=== PATIENT | male | born 1940 | race Caucasian/White ===

== ENCOUNTER 2024-11-09 06:08 | Inpatient (IN) | payer MEDICARE, SELFPAY ==
[2024-11-09] VITALS (45 sets, daily range): BP systolic 80–110; BP diastolic 33–61; PULSE 82–101; RESP 19–40; TEMP 36.9–39.6; O2SAT 93–99; BMI 32.8; BMI 36.0; BMI 33.9
--- NOTE | ~2024-11-09 | US_ITS ---
EXAMINATION: US ABDOMEN LIMITED CLINICAL INFORMATION: Ascites.. COMPARISON: Correlated to CT dated November 09, 2024. TECHNIQUE: Limited ultrasound of all 4 quadrants of the abdomen using grayscale technique with a curvilinear transducer. FINDINGS: There is a moderate to large amount of free fluid in the peritoneal cavity. Limited exam. US/US abdomen limited IMPRESSION: Ascites, moderate to large volume. Electronically signed by: Omar Singh MD 11/14/2024 10:13 AM EDT
--- NOTE | ~2024-11-09 | CT_ITS ---
EXAMINATION: CT CHEST WITHOUT CONTRAST CLINICAL INFORMATION: Dyspnea, edema versus pneumonia. COMPARISON: No prior CT. Chest x-ray dated earlier same day. TECHNIQUE: Multidetector volumetric CT imaging of the chest was done. Axial MIP volume rendering provided. Sagittal and coronal reformatted images were obtained. This CT examination was performed using dose optimization techniques as appropriate, variously including the following: *Automated exposure control *Adjustment of mA and/or kV according to patient size (this includes techniques or standardized protocols for targeted exams where dose is matched to indication/reason for exam; i.e. extremities or head) *Use of iterative reconstruction technique FINDINGS: There is mild to moderate respiratory motion artifact, limiting sensitivity of the study. LUNGS: There are dense consolidations in the bilateral lower lobe distributions with air bronchograms. There are patchy consolidative opacities in the posterior right upper lobe, similar etiology. There are centrilobular groundglass nodular opacities throughout the lingula and right middle lobe, also likely infectious representing bronchopneumonia. There appear to be trace pleural effusions. There is mild fluid thickening of the major fissures bilaterally. There is no pneumothorax. There is no suspicious pulmonary nodule within confines of motion and lower lung disease. MEDIASTINUM: Moderate cardiomegaly with biatrial enlargement. Calcification of the mitral valve annulus, aortic annulus, and aortic valve leaflets. This may indicate bicuspid valve and/or aortic stenosis. Aneurysmal dilatation of the ascending aorta measuring up to 5.4 cm. There is a ductus diverticulum. There is heavy atheromatous calcification. Main pulmonary artery is prominent, suggesting increased pulmonary pressures. There are likely reactive lymph nodes within the mediastinum measuring up to 12 mm. The thyroid gland is normal. The central airways are patent. Mildly patulous esophagus. CORONARY ARTERY CALCIFICATION: Moderate to heavy three-vessel coronary calcification. AXILLA: No lymphadenopathy. UPPER ABDOMEN: There is moderate ascites present. There are liver cysts present measuring up to 1.6 cm in the right hepatic lobe. There is likely hepatomegaly. The spleen is only partially imaged. OSSEOUS STRUCTURES: No suspicious lytic or blastic bone lesion. There are spinal degenerative changes and scoliosis. There are no acute fractures. CT/CT chest wo IV con IMPRESSION: 1. Somewhat motion degraded exam. 2. Multifocal pneumonitis, with consolidative opacities in both lower lobes, and patchy consolidative opacities in the posterior right upper lobe, with lesser bronchopneumonic involvement of the lingula and right middle lobe. 3. There appear to be trace pleural effusions. 4. There is moderate cardiomegaly, with notable biatrial enlargement. Calcification of the aortic valve leaflets, which may indicate bicuspid valve and/or aortic stenosis. There is no pericardial effusion. 5. Moderate aneurysmal dilatation of the ascending aorta at 5.4 cm diameter. Heavy calcific atherosclerosis 6. Prominent main pulmonary artery, suggesting increased pulmonary pressures. 7. There is moderate volume abdominal ascites present, etiology unclear. 8. There are reactive appearing lymph nodes in the mediastinum. 9. Additional ancillary findings as discussed in the body of the report. Electronically signed by: Sandeep Mclean MD 11/09/2024 11:09 AM EDT
--- NOTE | ~2024-11-09 | XR_ITS ---
EXAMINATION: XR CHEST CLINICAL INFORMATION: sob COMPARISON: None available. TECHNIQUE: Frontal view of the chest was obtained. FINDINGS: Patchy opacities extending from the right perihilar region to the periphery of the right hemithorax. Low lung volume. Cardiomediastinal silhouette size is enlarged. Calcified plaque thoracic aortic arch. No pneumothorax. Multilevel spondylosis. Degenerative changes in the shoulders. Osteopenia versus osteoporosis. XR/XR chest 1V IMPRESSION: Pulmonary edema versus multifocal pneumonia. Cardiomegaly versus pericardial effusion. Electronically signed by: Omar Singh MD 11/09/2024 07:42 AM EDT
--- NOTE | ~2024-11-09 | XR_ITS ---
CLINICAL HISTORY: tachypnea 1 view chest x-ray Comparison: CT/SR - CT ABDOMEN PELVIS WO IV CON - 11/09/24 10:[address]/AZ/SR - CT CHEST WO IV CON - 11/09/24 10:23 EDT CR/SR - XR CHEST 1V - 11/09/24 06:39 EDT Findings: Lung volumes are normal. Enlarged cardiac and mediastinal silhouette is unchanged. Unchanged retrocardiac opacities. Incrementally worsened right middle lobe and right lower lobe airspace opacities. No pleural effusion or pneumothorax. Vascular calcifications in the aorta. Visualized osseous structures are normal. Severe bilateral glenohumeral joint space narrowing. IMPRESSION: 1. Unchanged cardiomegaly 2. Worsening bibasilar airspace opacities. This document has been electronically signed by: Wilberto Randle III, MD PHD on 11/12/2024 02:12:52
--- NOTE | ~2024-11-09 | CT_ITS ---
EXAMINATION: CT ABDOMEN PELVIS WITHOUT IV CONTRAST HISTORY: air noted on chest CT COMPARISON: Correlation is made with a chest CT performed earlier in the day. TECHNIQUE: CT scan of the abdomen and pelvis was performed without contrast using standard departmental protocol. Coronal and sagittal reformatted images were generated and reviewed. Oral contrast material was not administered at the request of the referring physician. This CT exam was performed with one or more of the following dose reduction techniques: automated exposure control, adjustment of the mA and/or kV according to patient size, use of iterative reconstruction technique. DLP: 871 mGy-cm FINDINGS: LOWER CHEST: There is airspace consolidation with air bronchograms at both lung bases consistent with pneumonia. There is a trace left pleural effusion. CARDIOVASCULATURE: The heart is markedly enlarged. There is no pericardial effusion. LIVER: The liver demonstrates a mildly nodular contour, suggestive of cirrhosis. Multiple hypodense masses are seen within the liver which may represent cysts. There is a 4.6 cm lesion at the dome of the right lobe and additional 3.6 and 3.5 cm lesions more inferiorly in the right lobe. There is a 1.5 cm lesion in the left lobe. GALLBLADDER / BILE DUCTS: The gallbladder is unremarkable. There is no intra or extrahepatic biliary ductal dilatation. SPLEEN: The spleen is enlarged. PANCREAS: The pancreas has an unremarkable unenhanced appearance. ADRENAL GLANDS: Unremarkable. KIDNEYS/RETROPERITONEUM: No renal calculi are identified. There is no hydronephrosis. There is an 8.1 cm rim calcified cysts in the interpolar region of the right kidney and a 3.7 cm probable cyst at the lower pole. A tiny subcentimeter hyperdense focus is seen in the interpolar region. The left kidney demonstrates an 8.7 cm probable septated cyst at the lower pole. LYMPH NODES: There is a 2.6 cm right inguinal lymph node. VASCULATURE: The abdominal aorta demonstrates atherosclerotic calcification, but is normal in caliber. MESENTERY/PERITONEUM: There is a moderate amount of ascites in the abdomen and pelvis. There is no free intraperitoneal gas. STOMACH: The stomach is unremarkable. SMALL BOWEL: The small bowel is normal in caliber. COLON: The colon is unremarkable. APPENDIX: Normal. URINARY BLADDER/PELVIC ORGANS: The urinary bladder is partially obscured by streak artifact from a left total hip arthroplasty. The prostate is normal in size. BONES / SOFT TISSUES: There is degenerative disc disease of the spine. CT/CT abdomen pelvis wo IV con IMPRESSION: 1. Probable hepatic cirrhosis. Splenomegaly. Moderate amount of ascites. 2. Multiple liver lesions which may represent cysts. Confirmation with ultrasound is recommended. 3. Bilateral lower lobe consolidation, consistent with pneumonia. 4. Probable bilateral renal cysts as described. Confirmation with ultrasound is recommended. Electronically signed by: Marty Davis MD 11/09/2024 11:10 AM EDT
--- NOTE | 2024-11-09 06:19 | ECG_ITS ---
Test Reason : sob Blood Pressure : */* mmHG Vent. Rate : 98 BPM Atrial Rate : * BPM P-R Int : * ms QRS Dur : 94 ms QT Int : 354 ms P-R-T Axes : * 109 -25 degrees QTcB Int : 451 ms Atrial fibrillation with premature ventricular or aberrantly conducted complexes Rightward axis Low voltage QRS Cannot rule out Anteroseptal infarct , age undetermined Abnormal ECG No previous ECGs available Referred By: Jackie Okeefe Electronically Signed By: SALOME ADLER
--- NOTE | 2024-11-09 06:23 | ED_ITS ---
HPI - General Adult General Chief complaint: Dyspnea Stated complaint: snf SOB DNR DNI daniel x1 wk Time Seen by Provider: 11/09/24 06:19 Source: EMS Mode of arrival: EMS Limitations: other History of Present Illness ED Provider: Dr. Jackie Okeefe HPI narrative: Patient comes to the emergency room via EMS. Patient is coming from [facility]. According to EMS, the staff reported that the patient has been there for about a week, and he has been rhonchorous for the whole week. Today, they noted that patient's oxygen saturation was supposedly in the 60s. However, when EMS arrived, patient's oxygen saturation was in the low 90s. Initially, EMS reports that it was hard for them to obtain an oxygen saturation reading and they put him on 15 L prophylactically. Then they brought him to the emergency room. Patient is awake, alert, does not answer to questions. According to patient's copy of [facility]OLST form, he is DNR DNI. Patient does use CPAP at home. Patient denies any chest pain. Related Data Allergies Allergy/AdvReac Type Severity Reaction Status Date / Time No Known Allergies Allergy Verified 11/09/24 06:33 Review of Systems 2 Review of Systems: Yes Unobtainable due to mental condition, Unobtainable due to mental status and Other (Poor historian) [facility] Past Medical History Medical History Adequate anticoagulation on anticoagulant therapy Gout Rosacea Hypertension Hypothyroidism Atrial fibrillation Alcoholic cirrhosis Lymphoid leukemia CHF (congestive heart failure) Social History Social History Unable to assess alcohol history related to: Unable to respond Smoked in Last 30 Days: No Use of substances other than those prescribed or required for medical reasons: Unable to respond Advance Directives: Yes Advance Directives Information Provided: No Advance Directives on File: No Do you have a plan to hurt others: No Plan Physical Exam ED Vital Signs: Vital Signs - 24 hr 11/09/24 06:18 11/09/24 06:27 11/09/24 06:29 Temperature 99.5 F 103.3 F H 103.3 F H Pulse Rate 99 Respiratory Rate 19 Blood Pressure 100/54 L Pulse Oximetry 95 Oxygen Delivery Method Oxymask Oxygen Flow Rate 10 Fraction of Inspired Oxygen 11/09/24 06:32 11/09/24 07:15 11/09/24 07:53 Temperature Pulse Rate 95 94 Respiratory Rate 40 H 28 H Blood Pressure 90/48 L 84/46 L Pulse Oximetry 93 Oxygen Delivery Method CPAP Oxygen Flow Rate Fraction of Inspired Oxygen 30 11/09/24 08:02 11/09/24 08:11 Temperature Pulse Rate 88 97 Respiratory Rate 34 H Blood Pressure 84/44 L 84/44 L Pulse Oximetry 94 Oxygen Delivery Method BiPAP Oxygen Flow Rate Fraction of Inspired Oxygen 30 BMI result Body Mass Index 36.0 Course Course Course Narrative: Patient known to have CHF. We do not have any previous records to determine patient's ejection fraction. Patient known to use CPAP at home. On physical exam, the Patient has crackles bilaterally. Patient arrived on a OxyMask, patient has lower extremity edema, bilateral crackles, we will start the patient on CPAP Also, it was noted at this time, 06:30 that the pain in his rectal temperature is elevated at 103.3 F, patient is empirically being treated with IV antibiotics and IV fluids (200 mL given at 999 mL/hr), at this time, sepsis is not suspected. However, since patient has history of CPAP and patient's seems to be gradually, he would benefit from being on CPAP for couple of hours. Medications Administered Generic Name Dose Route Start Last Admin Trade Name Freq PRN Reason Stop Dose Admin Azithromycin 500 mg/ Sodium 250 mls @ 125 mls/hr 11/09/24 06:27 11/09/24 07:01 Chloride IV 11/09/24 08:26 125 mls/hr ONCE ONE Administration Norepinephrine Bitartrate 8 mg in 250 mls @ 0 mls/hr 11/09/24 08:00 11/09/24 08:11 Levophed IVCONT 0.05 mcg/kg/min .Q0M CAROLINE 9.72 mls/hr Protocol Administration Per Protocol Discontinued Medications Generic Name Dose Route Start Last Admin Trade Name Freq PRN Reason Stop Dose Admin Ceftriaxone Sodium 1 gm 11/09/24 06:27 11/09/24 07:01 Ceftriaxone Sodium 1 Gm Vial IVPUSH 11/09/24 06:28 1 gm ONCE ONE Administration Sodium Chloride 200 mls @ 999 mls/hr 11/09/24 06:27 11/09/24 07:10 Ns IVCONT 11/09/24 06:39 Infused .Q13M ONE Infusion Acetaminophen 1,000 mg in 100 mls @ 400 mls/hr 11/09/24 07:03 11/09/24 07:29 Ofirmev IV 11/09/24 07:17 Infused ONCE ONE Infusion Medical Decision Making Medical Decision Making [facility] Narrative: My interpretation of EKG: Atrial fibrillation, heart rate controlled, heart rate 98, occasional PVCs, otherwise no ST segment depression or elevation or T- wave inversions, QTC 451 At this time, 06:15 My interpretation of chest x-ray: Cardiomegaly present, Vascular congestion, questionable right lower lobe infiltrate. Radiology report is pending So far the only labs that we have bag is patient is hematology, patient's white blood cell count 6.2. All other labs are still pending. As mentioned above, patient already received IV fluids and IV antibiotics with a bolus exclusion form, patient does have history of CHF At this time, 07:28, Lactic acid is 1.5, patient's chemistry shows a creatinine of 1.46. A BNP of 1203. We do not know if this is new or the patient's baseline. At this time, 07:57, I was informed by the patient's nurse that the patient's blood pressure is in the low 80s. We will go ahead and start pressors. Also, at this time chest x-ray shows pulmonary edema versus multifocal pneumonia? Possible pericardial effusion? We will order a CT scan. At this time, 07:59, sepsis is suspected. Patient has already been covered with IV antibiotics, minimal fluids due to concurrent CHF exacerbation CT scan pending. I discussed the patient with Dr. Byrd CT scan pending. Patient is currently on Levophed, prostate blood pressure improves, we will take him for a CAT scan. At this time, 8:23, Dr. Thompson will take over patient's care Differential Diagnosis Differential Diagnoses: The differential diagnosis associated with the presentation includes (CHF, pneumonia, COVID, RSV, influenza) Admission/Observation Consideration of admission/observation: Escalation of care including admission/observation considered Consult Healthcare Provider Management of the patient was discussed with: Job Coach/Job Developer Lab Data [facility] Lab Attestation statement: I reviewed the patient's lab results. 11/09/24 06:43 11/09/24 06:43 Labs: Lab Results 11/09/24 11/09/24 Range/Units 06:43 06:52 WBC 6.2 (4.8-10.8) X10*3/uL RBC 3.13 L (4.60-5.80) X10*6/uL Hgb 9.4 L (14.0-18.0) g/dl Hct 28.3 L (42.0-52.0) % MCV 90.4 (80.0-98.0) fL MCH 30.0 (27.0-33.0) pg MCHC 33.2 (31.0-36.0) g/dl RDW 17.8 H (11.0-16.0) % Plt Count 118 L (160-400) X10*3/uL MPV 9.4 (9.4-12.4) fL Immature Gran % (Auto) Cancelled Neut % (Auto) Cancelled Lymph % (Auto) Cancelled [place] % (Auto) Cancelled Eos % (Auto) Cancelled Baso % (Auto) Cancelled Lymph # (Auto) Cancelled [place] # (Auto) Cancelled Eos # (Auto) Cancelled Baso # (Auto) Cancelled Abs Immat Gran (auto) Cancelled Absolute Neuts (auto) Cancelled Absolute Nucleated RBC 0.000 (0.0-0.012) X10*3/uL Nucleated RBC % (auto) 0.0 (0.0-0.2) /100WBC Neutrophils % (Manual) 36 L (45-73) % Band Neutrophils % 13 H (3-5) % Lymphocytes % (Manual) 42 H (20-40) % Atypical Lymphs % (Man) 2 (0-6) % Monocytes % (Manual) 5 (2-11) % Eosinophils % (Manual) 1 (0-4) % Metamyelocytes % 1 % Abs Neuts (Manual) 3.0 (2.0-8.3) X10*3/uL Lymphocytes # (Manual) 2.6 (1.2-4.9) X10*3/uL Atyp Lymphs # (Manual) 0.1 x10*3/uL Monocytes # (Manual) 0.3 (0.1-1.2) X10*3/uL Eosinophils # (Manual) 0.1 (0.0-0.4) X10*3/uL Metamyelocytes # 0.1 X10*3/uL Dohle Bodies PRESENT Platelet Estimate DECREASED (NORMAL) Plt Morphology Comment NORMAL RBC Morphology NOTED Polychromasia 1+ (0-2) /OIF Schistocytes 1+ (0-2) /OIF VBG pH 7.42 (7.32-7.43) VBG pCO2 47 mmHg VBG pO2 68 mmHg VBG HCO3 31 H (22-26) mmol/L VBG O2 Saturation 92.0 % VBG Base Excess 5.9 mmol/L Sodium 135 (135-145) mmol/L Potassium 4.2 (3.3-5.1) mmol/L Chloride 97 (96-108) mmol/L Carbon Dioxide 27 (22-29) mmol/L Anion Gap 15 (12-20) BUN 50 H (9-16) mg/dL Creatinine 1.46 H (0.5-1.4) mg/dL Estim Creat Clear Calc 45.4 Estimated GFR 46 Random Glucose 102 (60-115) mg/dL Lactic Acid 1.5 (0.5-2.0) mmol/L Calcium 8.7 (8.4-10.2) mg/dL Magnesium 2.4 (1.6-2.6) mg/dL Total Bilirubin 5.6 H (0.0-1.0) mg/dL Direct Bilirubin 1.4 H (0.0-0.5) mg/dL AST 22 (5-37) U/L ALT < 6 (0-40) U/L Alkaline Phosphatase 111 (39-117) U/L Troponin I High Sens 180.8 H* (<3.5-35.0) ng/L B-Natriuretic Peptide 1203 H (<100) pg/mL Total Protein 6.1 L (6.5-8.0) g/dL Albumin 3.4 L (3.5-5.0) g/dL Influenza Type A (PCR) NEGATIVE (Negative) Influenza Type B (PCR) NEGATIVE (Negative) RSV RNA Qual (PCR) NEGATIVE (Negative) SARS-CoV-2 RNA (RT-PCR) NEGATIVE (Negative) Independent Interpretation I performed an independent interpretation of an: EKG and Plain X-Ray Radiology Impression Discussion of test interpretation with radiology: I have reviewed the radiologist's reading. Radiologist Impression: Patchy opacities extending from the right perihilar region to the periphery of the right hemithorax. Low lung volume. Cardiomediastinal silhouette size is enlarged. Calcified plaque thoracic aortic arch. No pneumothorax. Multilevel spondylosis. Degenerative changes in the shoulders. Osteopenia versus osteoporosis. XR/XR chest 1V IMPRESSION: Pulmonary edema versus multifocal pneumonia. Cardiomegaly versus pericardial effusion Independent Historian Clinical information obtained from an independent historian. History obtained from or confirmed by: Spouse Critical Care Time Critical Care Time Critical Care Time: Yes Total Critical Care Time: 90 Attestation: I have personally provided critical care time. Time includes review of lab data, radiology results, discussion with consultants, and monitoring for potential decompensation. Intervention performed as documented. Discharge Plan Discharge Clinical Impression: CHF (congestive heart failure), Pneumonia, Sepsis Patient Disposition: Admitted As Inpatient Print Language: Guinean Sepsis Bolus Exclusion Sepsis Bolus Exclusion CHF/Renal Failure This patient met severe sepsis criteria due to the following condition(s):: D ocumentation of septic shock (Patient needs CPAP, secondary to CHF) In my clinical judgement the administration of 30 ml/kg of crystalloid would be detrimental to this patient due to the patient's following conditions:: NYHA class III or IV Heart Failure(symptoms with low exertion or rest) and Concern for fluid overload Replace the 30 mls/kg with (Zero amount not acceptable and all fluids for severe sepsis must be given at GREATER than 125 mls/hr) Crystalloids amount given in mls: (rate must be at least 150cc/hr): 200 Colloids amount given in mls:: 0
[2024-11-09 06:57] LABS: Venous Blood Gas Refer to POC result
[2024-11-09 06:57] LABS: VBG Base Excess 5.9 mmol/L; VBG HCO3 31 mmol/L (22-26); VBG pCO2 47 mmHg; VBG pH 7.42 (7.32-7.43); VBG pO2 68 mmHg
[2024-11-09 06:59] LABS: Hemoglobin 9.4 g/dl (14.0-18.0)
--- NOTE | 2024-11-09 07:00 | PC.NURSE ---
at this time the 30ml/kg sepsis fluids was not ordered by provider concern for CHF only 200ml was ordered
[2024-11-09] MEDS: Azithromycin 500 MG in 0.9 % Sodium Chloride 250 ML 125 MG IV (07:01)
[2024-11-09] MEDS: cefTRIAXone sodium 1 GM VIAL IVPUSH (07:01)
--- NOTE | 2024-11-09 07:02 | PC.NURSE ---
this underwriter mortgage loan spoke with Dr green about a concern for sepsis do to vs signs and at this time the provider decided not to call sepsis
[2024-11-09 07:04] LABS: Hematocrit 28.3 % (42.0-52.0); Mean Corpuscular HGB Conc 33.2 g/dl (31.0-36.0); Mean Corpuscular Volume 90.4 fL (80.0-98.0); Mean Platelet Volume 9.4 fL (9.4-12.4); Platelet Count 118 X10*3/uL (160-400); Red Blood Count 3.13 X10*6/uL (4.60-5.80); Red Cell Distribution Width 17.8 % (11.0-16.0); WBC ABN SCTR FOR CBC 1; White Blood Count 6.2 X10*3/uL (4.8-10.8)
--- NOTE | 2024-11-09 07:05 | PC.NURSE ---
Addendum entered by Vandana Diaz 11/09/24 09:47: correction pt is in A-fib on the monitor with hx of a-fib Original Note: pt is coming in from sniff for sob, pt is drowsy but arousable to voice command and light touch, pt will answer questions with no and yes answers difficult to understand the pt at times pt is tachypnic in the low 30's and lanored breathing, ls clear, pt is currently on CPAP at 12/30% of oxygen and sating well anywhere from 94-96%, pt abd very distended and firm and hyperactive bowel sounds, +1 peding edema in the bilateral extremities about half way up the leg/calf area, a would on the right lower rene area with a pressure dressing and foul order another pressure dressing on the left upper back area. ns on the monitor
[2024-11-09] MEDS: Acetaminophen 1,000 MG/100 ML PIGGYBACK 400 MG IV (07:09)
[2024-11-09 07:18] LABS: Lactic Acid 1.5 mmol/L (0.5-2.0)
[2024-11-09 07:20] LABS: Alanine Aminotransferase < 6 U/L (0-40); Albumin Level 3.4 g/dL (3.5-5.0); Alkaline Phosphatase 111 U/L (39-117); Anion Gap 15 (12-20); Aspartate Amino Transferase 22 U/L (5-37); Bilirubin Direct 1.4 mg/dL (0.0-0.5); Bilirubin Total 5.6 mg/dL (0.0-1.0); Blood Urea Nitrogen 50 mg/dL (9-16); Calcium 8.7 mg/dL (8.4-10.2); Carbon Dioxide 27 mmol/L (22-29); Chloride 97 mmol/L (96-108); Creatinine Clr Calc Pharmacy 45.4; Estimated Glomerular Filt Rate 46; Glucose Random 102 mg/dL (60-115); Magnesium 2.4 mg/dL (1.6-2.6); Potassium 4.2 mmol/L (3.3-5.1); Sodium 135 mmol/L (135-145); Total Protein 6.1 g/dL (6.5-8.0)
--- NOTE | 2024-11-09 07:23 | PC.NURSE ---
84 M coming from SNF with SOB x 1 week. Pt placed on CPAP upon arrival, reportedly satting in 60s at sending facility. Pt is lerthargic, responsive to verbal stimuli and answers yes and no, seems to have some confusion. Pt tolerating CPAP well, RR elevated and sats in the low 90s now. Pt denies any pain. Lung sounds clear bilat. Pinpoints a bit pinpoint. Edema noted to bilat legs with R leg having a bandaged wound. Pt is pale with some jaundice color.
[2024-11-09 07:24] LABS: Neutrophils Percent Manual 36 % (45-73)
[2024-11-09 07:25] LABS: B Type Natriuretic Peptide 1203 pg/mL (<100)
[2024-11-09 07:26] LABS: Atypical Lymph Absolute Manual 0.1 x10*3/uL; Atypical Lymphs Percent Manual 2 % (0-6); Band Neutrophils Percent 13 % (3-5); Eosinophils Absolute Manual 0.1 X10*3/uL (0.0-0.4); Eosinophils Percent Manual 1 % (0-4); Lymphocytes Absolute Manual 2.6 X10*3/uL (1.2-4.9); Lymphocytes Percent Manual 42 % (20-40); Metamyelocytes Absolute 0.1 X10*3/uL; Metamyelocytes Percent 1 %; Monocytes Absolute Manual 0.3 X10*3/uL (0.1-1.2); Monocytes Percent Manual 5 % (2-11)
[2024-11-09 07:30] LABS: Influenza A PCR NEGATIVE (Negative); Influenza B PCR NEGATIVE (Negative); Resp Syncy Virus RNA Qual PCR NEGATIVE (Negative); SARS COV2 PCR INHOUSE NEGATIVE (Negative)
[2024-11-09 07:31] LABS: Platelet Estimate DECREASED (NORMAL); Platelet Morphology Comment NORMAL; Polychromasia 1+ (0-2) /OIF; RBC Morphology NOTED; Schistocytes 1+ (0-2) /OIF
[2024-11-09 07:32] LABS: Dohle Bodies PRESENT; Troponin-I High Sensitivity 180.8 ng/L (<3.5-35.0)
--- OUTSIDE RECORDS SUMMARY | 2024-11-09 07:45 | XMS_ITS ---
[facility] Organization [facility] Encounters Encounter Type Encounter Reason Primary Diagnosis Location Date Ambulatory [facility] 02/10/2023 Care Team Organization Name Specialty Phone Email Start Date End [facility] 02/10/2023 08/02/2024 [facility] 02/09/2023 02/10/2023
--- NOTE | 2024-11-09 07:53 | PC.NURSE ---
This RN went into room d/t low BP, cuff repositioned, at bedside reporting he does normally take Midodrine, primary nurse and MD at bedside. Pt reporting no dizziness, CP at this time
--- NOTE | 2024-11-09 08:00 | PC.NURSE ---
Dr green approached this rn and states that sepsis will be called at this time
[2024-11-09] MEDS: Norepinephrine Bitartrate/D5W 8 MG/250 ML PLAST..BAG 9.72 MG IVCONT (08:11)
--- NOTE | 2024-11-09 08:14 | MHC.CM.ED ---
Patient is currently in ER. Received notification from [facility] that patient was at their facility for STR. Return referral made to facility can follow for d/c needs.
--- NOTE | 2024-11-09 08:45 | PC.NURSE ---
ICU doc at bedside with patient.
--- NOTE | 2024-11-09 10:41 | PHA.MEDREC ---
Addendum entered by Neena Franco RPh 11/09/24 11:36: Reviewed by [facility]. Original Note: Pharmacy Consult ? Medication Reconciliation Pharmacy has completed the medication reconciliation. Utilized list from [facility] to confirm med rec.
[2024-11-09] MEDS: Albumin Human 25 % 100 ML IV ×3 (11:30→23:52)
[2024-11-09] MEDS: Midodrine HCl 10 MG TABLET PO ×3 (11:32→19:54)
--- NOTE | 2024-11-09 11:34 | PC.RT ---
Pt arrive ICU from ER. Transitioned to 5 lpm Lisa n/c and neel well. Nursing aware.
--- NOTE | 2024-11-09 12:04 | PM.CCHP ---
History of Present Illness Date of Service: 11/09/24 Chief Complaint: Hypoxia, hypotension 84-year-old gentleman with underlying alcoholic cirrhosis with ascites and intermittent requirements for paracentesis, AFib on anticoagulation, hypothyroidism, congestive heart failure, lymphoid leukemia presented 11/09/2024 from alf facility with hypoxia and hypotension with poor response to initial IV fluid resuscitation requiring pressor and BiPAP support. Patient started on empiric antibiotics and admitted to intensive care unit. Review of Systems Constitutional: Constitutional: Denies daytime sleepiness, Denies excessive sweating, Denies fatigue, Denies fever(s), Denies lethargy, Denies malaise, Denies night sweats, Denies snoring and Denies weight loss Eyes: Eyes: Denies blurry vision and Denies itchy eyes ENT: Denies nasal congestion, Denies post nasal drip, Denies sinus pain, Denies sinus pressure and Denies other ( Thrush) Cardiovascular: Cardiovascular: Denies chest pain, Denies pedal edema, Reports dyspnea, Denies orthopnea and Denies paroxysmal nocturnal dyspnea Respiratory: Respiratory: Denies cough, Denies hemoptysis, Denies excessive phlegm production, Reports dyspnea, Denies snoring and Denies wheezing Gastrointestinal: Gastrointestinal: Denies abdominal pain and Denies heartburn Musculoskeletal: Musculoskeletal: Denies myalgias, Denies arthralgias and Denies joint swelling Integumentary/Breasts: Skin/Breast: Denies rash Neurologic: Denies memory loss and Denies seizure-like activity Psychiatric: Psychiatric: Denies abnormal sleep pattern, Denies anxiety and Denies memory loss Endocrine: Endocrine: Denies excessive sweating, Denies fatigue and Denies heat intolerance Hematologic/Lymphatic: Hematologic/Lymphatic: Denies easy bruising Allergic/Immunologic: Allergic/Immunologic: Denies itchy eyes, Denies seasonal rhinorrhea and Denies wheezing PMFSH Past Medical History Medical History (Updated 11/09/24 @ 12:10 by Marcelo Byrd MD) Adequate anticoagulation on anticoagulant therapy Gout Rosacea Hypertension Hypothyroidism Atrial fibrillation Alcoholic cirrhosis Lymphoid leukemia CHF (congestive heart failure) Social History Social History Household Members: Spouse Housing: Group Home Do you presently have visiting nurse or other home services: No Unable to assess alcohol history related to: Unable to respond Patient Tobacco Use Status: Never used Tobacco Smoked in Last 30 Days: No Use of substances other than those prescribed or required for medical reasons: Unable to respond Have you been hit, kicked, punched, or otherwise hurt by someone within the past year? If so, by whom?: No Do you feel safe in your current relationship?: Yes Is there a partner from a previous relationship who is making you feel unsafe now?: No Are you made to feel afraid or neglected: No Advance Directives: Yes Advance Directives Information Provided: No Advance Directives on File: No Advance Directives Date on File: 11/09/24 Do you have a plan to hurt others: No Plan Recently lost weight without trying: No Eating poorly because of decreased appetite: Yes Nutrition Risks: Dental problems Meds Allergies Allergy/AdvReac Type Severity Reaction Status Date / Time No Known Allergies Allergy Verified 11/09/24 06:33 Active Medications: Current Medications Apixaban (Apixaban 2.5 Mg Tablet) 2.5 mg PO BID [facility] Norepinephrine Bitartrate (Levophed) 8 mg in 250 mls @ 0 mls/hr IVCONT .Q0M CAROLINE; Protocol Last Titration: 11/09/24 11:50 Dose: 0.23 mcg/kg/min, 44.72 mls/hr Albumin Human (Kedbumin 25 %) 100 mls @ 100 mls/hr IV Q6H CAROLINE Stop: 11/10/24 06:14 Last Admin: 11/09/24 11:30 Dose: 100 mls/hr Levothyroxine Sodium (Levothyroxine Sodium 75 Mcg Tablet) 75 mcg PO DAILY@0600 [facility] Midodrine (Midodrine Hcl 10 Mg Tablet) 10 mg PO TID [facility] Last Admin: 11/09/24 11:32 Dose: 10 mg Home Medications ?Medication ?Instructions ?Recorded ?Confirmed ?Last Taken ?Type acetaminophen 500 mg tablet 1,000 mg PO Q6H PRN Pain/Fever 11/09/24 11/09/24 Unknown History allopurinol 300 mg tablet 300 mg PO BEDTIME 11/09/24 11/09/24 Unknown History apixaban 2.5 mg tablet (Eliquis) 2.5 mg PO BID 11/09/24 11/09/24 Unknown History bisacodyl 10 mg rectal suppository 10 mg [place] DAILY PRN Constipation 11/09/24 11/09/24 Unknown History calcium carbonate 600 mg PO DAILY 11/09/24 11/09/24 Unknown History carvedilol 6.25 mg tablet 6.25 mg PO BID 11/09/24 11/09/24 Unknown History cholecalciferol (vitamin D3) 25 50 mcg PO DAILY 11/09/24 11/09/24 Unknown History mcg (1,000 unit) tablet (Vitamin D3) empagliflozin 10 mg tablet 10 mg PO DAILY 11/09/24 11/09/24 Unknown History (Jardiance) lactulose 10 gram/15 mL oral 30 ml PO DAILY PRN Constipation 11/09/24 11/09/24 Unknown History solution levothyroxine 75 mcg tablet 75 mcg PO DAILY@0600 11/09/24 11/09/24 Unknown History magnesium hydroxide 400 mg/5 mL 30 ml PO DAILY PRN Constipation 11/09/24 11/09/24 Unknown History oral suspension (Milk of Magnesia) midodrine 5 mg tablet 5 mg PO TID 11/09/24 11/09/24 Unknown History polyethylene glycol 3350 17 gram 17 g PO DAILY PRN Constipation 11/09/24 11/09/24 Unknown History oral powder packet (Miralax) spironolactone 50 mg tablet 50 mg PO DAILY 11/09/24 11/09/24 Unknown History tamsulosin 0.4 mg capsule 0.8 mg PO DAILY 11/09/24 11/09/24 Unknown History torsemide 20 mg tablet 60 mg PO BID 11/09/24 11/09/24 Unknown History Physical Exam Vital Signs: Vital Signs: Last Vital Signs Temp 100.2 F 11/09/24 11:00 Pulse 92 11/09/24 11:50 Resp 29 H 11/09/24 11:00 BP 85/41 L 11/09/24 11:50 Pulse Ox 96 11/09/24 11:00 O2 Del Method BiPAP 11/09/24 11:00 O2 Flow Rate 10 11/09/24 08:58 FiO2 30 11/09/24 10:03 BMI result Body Mass Index 33.9 Const: General: no acute distress, alert and awake Eyes: Sclerae: sclerae normal EOM: EOMs intact bilaterally Neck: Neck: Yes no lymphadenopathy, Yes trachea midline and Yes supple Resp: Effort & Inspection: normal respiratory effort and no respiratory distress Auscultation: clear to auscultation bilaterally Cardio: Rate: regular rate Rhythm: regular rhythm Heart sounds: no gallops, no murmurs and no rubs GI: Inspection: Yes distended Palpation (GI): Soft to palpation and nontender Auscultation: normal bowel sounds Extrem: General: No clubbing, No cyanosis and Yes edema (Trace bilateral lower extremity) Results Labs 11/09/24 06:43 11/09/24 06:43 Labs: Laboratory Results - last 24 hr 11/09/24 11/09/24 06:43 06:52 MCV 90.4 MCH 30.0 MCHC 33.2 RDW 17.8 H Plt Count 118 L MPV 9.4 Immature Gran % (Auto) Cancelled Neut % (Auto) Cancelled Lymph % (Auto) Cancelled [place] % (Auto) Cancelled Eos % (Auto) Cancelled Baso % (Auto) Cancelled Lymph # (Auto) Cancelled [place] # (Auto) Cancelled Eos # (Auto) Cancelled Baso # (Auto) Cancelled Abs Immat Gran (auto) Cancelled Absolute Neuts (auto) Cancelled Absolute Nucleated RBC 0.000 Nucleated RBC % (auto) 0.0 Neutrophils % (Manual) 36 L Band Neutrophils % 13 H Lymphocytes % (Manual) 42 H Atypical Lymphs % (Man) 2 Monocytes % (Manual) 5 Eosinophils % (Manual) 1 Metamyelocytes % 1 Abs Neuts (Manual) 3.0 Lymphocytes # (Manual) 2.6 Atyp Lymphs # (Manual) 0.1 Monocytes # (Manual) 0.3 Eosinophils # (Manual) 0.1 Metamyelocytes # 0.1 Dohle Bodies PRESENT Platelet Estimate DECREASED Plt Morphology Comment NORMAL RBC Morphology NOTED Polychromasia 1+ (0-2) Schistocytes 1+ (0-2) VBG pH 7.42 VBG pCO2 47 VBG pO2 68 VBG HCO3 31 H VBG O2 Saturation 92.0 VBG Base Excess 5.9 Anion Gap 15 Estim Creat Clear Calc 45.4 Estimated GFR 46 Random Glucose 102 Lactic Acid 1.5 Calcium 8.7 Magnesium 2.4 Total Bilirubin 5.6 H Direct Bilirubin 1.4 H AST 22 ALT < 6 Alkaline Phosphatase 111 Troponin I High Sens 180.8 H* B-Natriuretic Peptide 1203 H Total Protein 6.1 L Albumin 3.4 L Influenza Type A (PCR) NEGATIVE Influenza Type B (PCR) NEGATIVE RSV RNA Qual (PCR) NEGATIVE SARS-CoV-2 RNA (RT-PCR) NEGATIVE Imaging Radiologist's Impressions: Impressions Chest X-Ray 11/09/24 05:39 IMPRESSION: Pulmonary edema versus multifocal pneumonia. Cardiomegaly versus pericardial effusion. Electronically signed by: Omar Singh MD 11/09/2024 07:[address] 11/09/24 09:23 IMPRESSION: 1. Somewhat motion degraded exam. 2. Multifocal pneumonitis, with consolidative opacities in both lower lobes, and patchy consolidative opacities in the posterior right upper lobe, with lesser bronchopneumonic involvement of the lingula and right middle lobe. 3. There appear to be trace pleural effusions. 4. There is moderate cardiomegaly, with notable biatrial enlargement. Calcification of the aortic valve leaflets, which may indicate bicuspid valve and/or aortic stenosis. There is no pericardial effusion. 5. Moderate aneurysmal dilatation of the ascending aorta at 5.4 cm diameter. Heavy calcific atherosclerosis 6. Prominent main pulmonary artery, suggesting increased pulmonary pressures. 7. There is moderate volume abdominal ascites present, etiology unclear. 8. There are reactive appearing lymph nodes in the mediastinum. 9. Additional ancillary findings as discussed in the body of the report. Electronically signed by: Sandeep Mclean MD 11/09/2024 11:09 AM EDT Abdomen/Pelvis CT 11/09/24 09:32 IMPRESSION: 1. Probable hepatic cirrhosis. Splenomegaly. Moderate amount of ascites. 2. Multiple liver lesions which may represent cysts. Confirmation with ultrasound is recommended. 3. Bilateral lower lobe consolidation, consistent with pneumonia. 4. Probable bilateral renal cysts as described. Confirmation with ultrasound is recommended. Electronically signed by: Marty Davis MD 11/09/2024 11:10 AM EDT Assessment and Plan (1) Alcoholic cirrhosis: Status: Acute (2) CHF (congestive heart failure): Status: Acute (3) Acute respiratory failure with hypoxia: Status: Acute (4) Atrial fibrillation: Status: Acute Plan Assessment: 84-year-old gentleman with underlying alcoholic cirrhosis, AFib, congestive heart failure admitted with hypotension and hypoxemia with likely pulmonary source and suspected aspiration component. Plan: Neuro: No acute issues. Cardiac: Shock, continue to titrate off pressor support as tolerated. Likely underlying congestive heart failure. 2D echocardiogram is pending. Pulmonary: Acute hypoxic respiratory failure with bibasilar consolidation likely secondary to aspiration, continue to titrate off noninvasive positive pressure ventilatory support as tolerated. Renal: No acute issues. Endo: No acute issues. GI: No acute issues. Underlying hepatic alcoholic cirrhosis with recurrent ascites. ID: Empiric coverage for pulmonary aspiration. Heme/Onc: No acute issues. Psych: No acute issues. Miscellaneous: No acute issues. Prophylaxis: Apixaban Diet: Pending swallow evaluation Critical care time spent: 45 minutes
[2024-11-09] MEDS: Norepinephrine Bitartrate/D5W 8 MG/250 ML PLAST..BAG 40.83 MG IVCONT (14:10)
--- NOTE | 2024-11-09 15:00 | CA_ITS ---
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 The visually estimated ejection fraction is between 55-60%. - There is severely increased left ventricular wall thickness. - Severe biatrial enlargement. - There is moderate aortic valve stenosis. - There is moderate mitral annular calcification. There is mild to moderate mitral valve regurgitation. - There is mild dilatation of the sinuses of Valsalva measuring 4.50 cm and moderate dilatation of the ascending aorta measuring 4.90 cm. Findings Left Ventricle Normal left ventricular cavity size. There is severely increased left ventricular wall thickness. The left ventricular systolic function is normal. The visually estimated ejection fraction is between 55-60%. Diastolic function is indeterminate on the basis of available data. Right Ventricle Moderately increased right ventricular cavity size. There is moderately decreased right ventricular systolic function. Atria Severe biatrial enlargement. The atrial septum has a dumbell appearance. Patent foramen ovale seen by color Doppler. Aortic Valve There is moderate calcification of the aortic valve. There is moderate aortic valve stenosis. Dimensionless index 0.4. Stroke volume index 51ml/m2. Larger than expected aortic valve area due to large LVOT diameter. Trace to mild aortic regurgitation. Mitral Valve There is moderate mitral annular calcification. There is mild to moderate mitral valve regurgitation. There is no mitral valve stenosis. Pulmonic Valve The pulmonic valve is likely normal. Tricuspid Valve There is mild tricuspid valve regurgitation. Mild pulmonary hypertension is present. Great Vessels There is mild dilatation of the sinuses of Valsalva measuring 4.50 cm and moderate dilatation of the ascending aorta measuring 4.90 cm. Moderate plaque is seen in the ascending aorta. Venous The inferior vena cava is dilated and collapses less than 50% with inspiration. Pericardium/Pleural There is no evidence of pericardial effusion. Prior Study Comparison No prior study available for comparison. Measurements 2D Linear Measurements IVSd: 1.97 0.6-0.9/0.6-1.0 cm LVIDd: 4.30 3.9-5.3/4.2-5.9 cm LVIDd Index: 1.92 2.4-3.2/2.2-3.1 cm/m2 LVIDs: 2.29 2.0-3.6 cm LVPWd: 1.62 0.7-1.1 cm LA Diam: 8.60 2.7-3.8/3.0-4.0 cm LAIDs Index: 3.84 1.5-2.3 cm/m2 LV Mass: 428.13 67-162/88-224 g LV Mass Index: 191.13 43-95/49-115 g/m2 LVOT Diam: 2.90 3.0+(-)1.3 cm 2D Systolic Function EF 4C: 49.50 >55% EF 2C: 34.70 >55% Mitral Valve MV VTI: 0.33 MV Pk Jimmie: 1.73 MV Mn Jimmie: 0.87 MV Pk Grad: 12.00 MV Mn Grad: 4.00 E'Lateral: 8.81 E'Medial: 5.00 MVA Continuity: 3.49 Aortic Valve AoV Pk Jimmie: 2.34 AoV Mn Jimmie: 1.70 AoV VTI: 0.45 AoV Pk Grad: 22.00 Aov Mn Grad: 13.00 TRES Cont.VTI: 2.59 LVOT LVOT Pk Jimmie: 0.94 LVOT Mn Jimmie: 0.68 LVOT VTI: 0.18 LVOT Pk Grad: 4.00 LVOT Mn Grad: 2.00 LVOT Diam: 2.90 LVOT Area: 6.61 Diastolic Function E'Medial: 5.00 E' Laterial: 8.81 Right Ventricle TAPSE (mm): 7.90 TVS' Jimmie: 6.96 Tricuspid Valve TR Pk Jimmie: 2.69 TR Pk Grad: 29.00 RA Press: 15.00 RVSP: 44.00 Great Vessels Aorta Sinus of Valsalva: 4.50 2.0-3.5 cm Ao Asc: 4.90 2.1-3.4 cm Updated in Other Vendor System with Status of Final Terry Paez MD electronically signed on 11/10/2024 11:31:20 AM with status of Final
[2024-11-09 17:03] LABS: Amphetamine Screen Urine Not Detected (Not Detect); Barbiturates, Urine Not Detected (Not Detect); Benzodiazepines Screen Urine Not Detected (Not Detect); Buprenorphine Scr Not Detected (Not Detect); Cannabinoid Screen Urine Not Detected (Not Detect); Cocaine Screen Urine Not Detected (Not Detect); Fentanyl, urine Not Detected (Not Detect); Methadone Screen, Urine Not Detected (Not Detect); Opiate Screen Urine Not Detected (Not Detect); Oxycodone Screen Urine Not Detected (Not Detect); Phencyclidine Screen Urine Not Detected (Not Detect)
--- NOTE | 2024-11-09 18:17 | PC.NURSE ---
Pt. admitted to ICU from ED at approx. 1045. Bipap removed by RT, pt. placed on 5L Lisa NC. A&Ox4, drowsy and vague but answers questions appropriately. Pt. Afib with PVCs on tele, HR 80s-110s. Marginal BPs- norepinephrine gtt titrated for goal of SBP >90 per MD- see EMAR. Pt. edamatous, BLE +2 pitting. 02 sats >92%, Respirations even and unlabored, no c/o SOB. Pt. tolerating regular diet, unsure of last BM. Abd large and distended. Male purewick placed, draining brendan/orange urine. Echo completed- see report. Family at bedside, updated by this RN and MD. Q2 repositioning performed. Plan of care ongoing.
[2024-11-09] MEDS: Norepinephrine Bitartrate/D5W 8 MG/250 ML PLAST..BAG 29.17 MG IVCONT (19:53)
[2024-11-09] MEDS: Apixaban 2.5 MG TABLET PO (19:54)
[2024-11-10] VITALS (36 sets, daily range): BP systolic 87–113; BP diastolic 46–83; PULSE 82–122; RESP 13–36; TEMP 36.3–37.1; O2SAT 92–100; BMI 34.6
[2024-11-10] MEDS: Norepinephrine Bitartrate/D5W 8 MG/250 ML PLAST..BAG 17.5 MG IVCONT (03:00)
--- NOTE | 2024-11-10 03:32 | PC.NURSE ---
CARE ASSUMED 8:30PM..PATIENT AWAKE...ORIENTED X2..VAGUE RESPONSES TO MANY QUESTIONS...O2 4 L/M W/O DISTRESS..ATRIAL FIB HR 90'S-100'S...LEVOPHED DRIP INFUSING PER JUL..LEVOPHED WEANED TO 0.09 MCG/KG/MIN AT PRESENT,,,PER REPORT AND PROVIDER BP GOAL= SBP>/= 90...PATIENT PULLED OFF PURWIK EXTERNAL CATHETER AND INCONTINANT OF LOOSE BROWN STOOL...PURWIK RE-APPLIED AND COLLECTED 800ML AR PRESENT...PATIENT PULLED OUT RIGHT FOREARM IV...NEW IV INSERTED RIGHT WRIST..LEVOPHED INFUSING TO LEFT ARM IV SITE..BOTH SITES WITH GOOD BLOOD RETURN...BRUISES TO RIGHT HIP...BILATERAL LEG EDEMA TO THIGHS..ABDOMEN DISTENDED..PREVIOUS CT SHOWED MODERATE ASCITES...COCCYX REDDENED BUT BLANCHABLE..FOAM DRESSING REAPPLIED AFTER INCONTINANCE..DENIES DISCOMFORT
[2024-11-10 04:23] LABS: VBG Base Excess 8.8 mmol/L; VBG HCO3 31 mmol/L (22-26); VBG pCO2 35 mmHg; VBG pH 7.55 (7.32-7.43); VBG pO2 50 mmHg
[2024-11-10 04:52] LABS: Hematocrit 25.9 % (42.0-52.0); Hemoglobin 8.4 g/dl (14.0-18.0); Mean Corpuscular HGB Conc 32.4 g/dl (31.0-36.0); Mean Corpuscular Hemoglobin 29.7 pg (27.0-33.0); Mean Corpuscular Volume 91.5 fL (80.0-98.0); Mean Platelet Volume 10.2 fL (9.4-12.4); Platelet Count 127 X10*3/uL (160-400); Red Blood Count 2.83 X10*6/uL (4.60-5.80); Red Cell Distribution Width 17.6 % (11.0-16.0); White Blood Count 8.9 X10*3/uL (4.8-10.8)
[2024-11-10] MEDS: Albumin Human 25 % 100 ML IV ×3 (04:52→15:15)
[2024-11-10] MEDS: Levothyroxine Sodium 75 MCG TABLET PO (05:10)
[2024-11-10 05:19] LABS: Alanine Aminotransferase < 6 U/L (0-40); Albumin Level 3.3 g/dL (3.5-5.0); Alkaline Phosphatase 86 U/L (39-117); Anion Gap 15 (12-20); Aspartate Amino Transferase 30 U/L (5-37); Bilirubin Total 3.8 mg/dL (0.0-1.0); Blood Urea Nitrogen 52 mg/dL (9-16); Calcium 8.6 mg/dL (8.4-10.2); Carbon Dioxide 26 mmol/L (22-29); Chloride 97 mmol/L (96-108); Creatinine Clr Calc Pharmacy 52.3; Estimated Glomerular Filt Rate 53; Glucose Random 113 mg/dL (60-115); Magnesium 2.6 mg/dL (1.6-2.6); Phosphorus 3.6 mg/dL (2.7-4.5); Sodium 134 mmol/L (135-145); Total Protein 5.9 g/dL (6.5-8.0)
[2024-11-10 05:42] LABS: Band Neutrophils Percent 15 % (3-5); Eosinophils Absolute Manual 0.3 X10*3/uL (0.0-0.4); Eosinophils Percent Manual 3 % (0-4); Lymphocytes Percent Manual 34 % (20-40); Monocytes Absolute Manual 0.8 X10*3/uL (0.1-1.2); Monocytes Percent Manual 9 % (2-11); Neutrophils Absolute Manual 4.8 X10*3/uL (2.0-8.3); Neutrophils Percent Manual 39 % (45-73)
[2024-11-10 05:44] LABS: Ovalocytes 1+ (5-14) /OIF; RBC Morphology NOTED; Schistocytes 1+ (0-2) /OIF
[2024-11-10 05:45] LABS: Burr Cells 2+ (3-5) /OIF; Dohle Bodies PRESENT; Platelet Estimate SLIGHTLY DECREASED (NORMAL); Toxic Vacuolation PRESENT
[2024-11-10 05:46] LABS: Platelet Morphology Comment NORMAL
[2024-11-10 07:40] LABS: Venous Blood Gas Refer to POC result
[2024-11-10] MEDS: Midodrine HCl 10 MG TABLET PO ×3 (08:14→19:50)
[2024-11-10] MEDS: 0.9 % Sodium Chloride Flush 3 ML SYRINGE IVFLUSH ×3 (08:15→19:53)
[2024-11-10] MEDS: Apixaban 2.5 MG TABLET PO ×2 (08:15→19:51)
[2024-11-10] MEDS: cefTRIAXone sodium 2 GM VIAL IVPUSH (09:59)
--- NOTE | 2024-11-10 10:04 | PM.CCPN ---
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 Patient started on empiric antibiotics and admitted to intensive care unit. Blood cultures growing Gram-negative rods. Events overnight. Titrated off BiPAP support. Pressor requirements are improving. Critical Care Time (minutes): 45 Physical Exam Vital Signs: Vital Signs: Last Vital Signs Temp 97.3 F 11/10/24 08:00 Pulse 96 11/10/24 09:00 Resp 31 H 11/10/24 09:00 BP 104/57 L 11/10/24 09:00 Pulse Ox 93 11/10/24 09:00 O2 Del Method Nasal Cannula 11/10/24 09:00 O2 Flow Rate 5 11/10/24 09:00 FiO2 28 11/10/24 07:00 BMI result Body Mass Index 34.6 Const: General: no acute distress, alert and awake Eyes: Sclerae: sclerae normal EOM: EOMs intact bilaterally Neck: Neck: Yes no lymphadenopathy, Yes trachea midline and Yes supple Resp: Effort & Inspection: normal respiratory effort and no respiratory distress Auscultation: clear to auscultation bilaterally Cardio: Rate: regular rate Rhythm: regular rhythm Heart sounds: no gallops, no murmurs and no rubs GI: Inspection: Yes distended Palpation (GI): Soft to palpation and Other GI palpation findings present ( Nontender) Auscultation: normal bowel sounds Extrem: General: Yes no pedal edema, No clubbing and No cyanosis Objective Data Labs 11/10/24 04:11 11/10/24 04:11 Labs: Laboratory Results - last 24 hr 11/09/24 11/10/24 11/10/24 14:18 04:11 04:19 WBC 8.9 RBC 2.83 L Hgb 8.4 L Hct 25.9 L MCV 91.5 MCH 29.7 MCHC 32.4 RDW 17.6 H Plt Count 127 L MPV 10.2 Immature Gran % (Auto) Cancelled Neut % (Auto) Cancelled Lymph % (Auto) Cancelled [place] % (Auto) Cancelled Eos % (Auto) Cancelled Baso % (Auto) Cancelled Lymph # (Auto) Cancelled [place] # (Auto) Cancelled Eos # (Auto) Cancelled Baso # (Auto) Cancelled Abs Immat Gran (auto) Cancelled Absolute Neuts (auto) Cancelled Absolute Nucleated RBC 0.000 Nucleated RBC % (auto) 0.0 Neutrophils % (Manual) 39 L Band Neutrophils % 15 H Lymphocytes % (Manual) 34 Monocytes % (Manual) 9 Eosinophils % (Manual) 3 Abs Neuts (Manual) 4.8 Lymphocytes # (Manual) 3.0 Monocytes # (Manual) 0.8 Eosinophils # (Manual) 0.3 Toxic Vacuolation PRESENT Dohle Bodies PRESENT Platelet Estimate SLIGHTLY DECREASED Plt Morphology Comment NORMAL RBC Morphology NOTED Ovalocytes 1+ (5-14) Reilly Cells 2+ (3-5) Schistocytes 1+ (0-2) VBG pH 7.55 H VBG pCO2 35 VBG pO2 50 VBG HCO3 31 H VBG O2 Saturation 83.0 VBG Base Excess 8.8 Sodium 134 L Potassium 4.0 Chloride 97 Carbon Dioxide 26 Anion Gap 15 BUN 52 H Creatinine 1.30 Estim Creat Clear Calc 52.3 Estimated GFR 53 Random Glucose 113 Calcium 8.6 Phosphorus 3.6 Magnesium 2.6 Total Bilirubin 3.8 H AST 30 ALT < 6 Alkaline Phosphatase 86 Total Protein 5.9 L Albumin 3.3 L Urine Opiates Screen Not Detected Ur Buprenorphine Scrn Not Detected Ur Oxycodone Screen Not Detected Urine Methadone Screen Not Detected Urine Fentanyl Screen Not Detected Ur Barbiturates Screen Not Detected Ur Phencyclidine Scrn Not Detected Ur Amphetamines Screen Not Detected U Benzodiazepines Scrn Not Detected Urine Cocaine Screen Not Detected U Marijuana (THC) Screen Not Detected Microbiology Microbiology Results: Microbiology 11/09/24 06:41 Blood - Venous Blood Culture - Preliminary Prelim: GNR Gram Stain only 11/09/24 06:43 Blood - Venous Blood Culture - Preliminary Prelim: GNR Gram Stain only Progress Note: A&P Assessment and plan (1) Gram-negative bacteremia: Status: Acute (2) CHF (congestive heart failure): Status: Acute (3) Atrial fibrillation: Status: Acute (4) Alcoholic cirrhosis: Status: Acute Plan Assessment: 84-year-old gentleman with underlying alcoholic cirrhosis, AFib, congestive heart failure admitted with hypotension and hypoxemia with likely pulmonary source and suspected aspiration component. Plan: Neuro: No acute issues. Cardiac: Shock, continue to titrate off pressor support as tolerated. Likely underlying congestive heart failure. 2D echocardiogram is pending. Pulmonary: Acute hypoxic respiratory failure with bibasilar consolidation likely secondary to aspiration, improved. Titrated to room air. Renal: No acute issues. Endo: No acute issues. GI: No acute issues. Underlying hepatic alcoholic cirrhosis with recurrent ascites. ID: Gram-negative bacteremia, continue ceftriaxone. Heme/Onc: No acute issues. Psych: No acute issues. Miscellaneous: No acute issues. Prophylaxis: Apixaban Diet: Regular Critical care time spent: 45 minutes Quality Stroke Does the patient have a stroke diagnosis?: No VTE Prior VTE?: No VTE Risk Level:: Medical - moderate - high VTE Device Contraindication: Treatment Not Indicated VTE Drug Contraindication: Treatment Not Indicated
--- NOTE | 2024-11-10 12:35 | PC.NURSE ---
Assumed care approx. @ 1200 Neuro: Alert & oriented x2? Respiratory: On 4L Lisa [place], SpO2 95%, Wheezing sounds bilaterally. Cardiac: Afib on tele, On norepinephrine per JUL. Goal: systolic BP >[address] Byrd. GI/: Abd large/ distended, + bowel sounds, External catheter in place. Skin: impaired skin integrity- see skin assessment? Infectious: IV antibiotics Temp: Afebrile Lines: peripheral IV
--- NOTE | 2024-11-10 12:39 | MHC.CM.PN ---
Met w/pt to review d/c plan. Pt presently at [facility] (bed hold) for STR. Previously resided at home w/spouse. Pt will need to return to SNF to complete STR - referred back to facility and confirmed pt is a bed hold. Pt will need BLS transport. HCP copy requested. IMM in chart
--- NOTE | 2024-11-10 14:26 | P.CDIM_ITS ---
PROVIDER RESPONSE TEXT: To clarify, the appropriate diagnosis supported by the clinical indicators: Other specifics to the Shock QUERY TEXT: PHYSICIAN'S DOCUMENTATION REQUEST Date of Query: 11/10/2024 11:28 AM EDT Patient Name: Myles Monsivais Admit Date: 11/09/2024 Dear Marcelo Byrd MD, A review of the medical record indicates additional documentation may be needed. Please review below and update the documentation accordingly. Clinical Indicators: ICU progress note 11/10/24 - Cardiac: Shock, continue to titrate off pressor support as tolerated. Likely underlying congestive heart failure. 2D echocardiogram is pending. Dyspnea, hypoxic: BP 90/48 RR 40 BNP 1203 Please clarify any further specifics to the documented Shock: Cardiogenic shock possible, suspected, confirmed, probable etc. Shock, unknown type Other specifics to the Shock Other (explain) Clinically unable to determine (explain) Thank you, Leslie Moura, CCS, CDIS Use of terms such as suspected, likely, concern for, or probable (associated with a specific diagnosis that is being evaluated, monitored, or treated as if it exists) are acceptable and can be coded in the inpatient setting, when documented at the time of discharge. Please use your independent medical judgment in providing your response. THIS QUERY IS PART OF THE PERMANENT MEDICAL RECORD
--- NOTE | 2024-11-10 15:39 | HO.SKINPHOTO ---
Location: Right leg
[2024-11-10] MEDS: Norepinephrine Bitartrate/D5W 8 MG/250 ML PLAST..BAG 13.61 MG IVCONT (18:46)
[2024-11-11] VITALS (21 sets, daily range): BP systolic 95–130; BP diastolic 48–68; PULSE 85–109; RESP 18–38; TEMP 36.5–37.7; O2SAT 90–100; BMI 34.6
--- NOTE | 2024-11-11 04:53 | PC.NURSE ---
Upon initial assessment at 1999- pt A&Ox2/3, vague/forgetful at times but easily redirected. Afib with frequent multifocal PVCs on tele, HR 80-100s. Levophed gtt titrated off at 2200, SBP > 90 throughout night. LS with expiratory wheezing and productive cough, RR 20-30, denies SOB/dyspnea. Placed on CPAP 12/21% overnight, frequently pulling off. Voiding via male purewick. No BM. Skin overall intact. Repositioned in bed q2h with pillows/wedges. Bed locked in lowest position, alarm on, call burch in reach. Telesitter in room for safety. See EMR/flowsheet for further details.
[2024-11-11 04:59] LABS: VBG Base Excess 8.4 mmol/L; VBG HCO3 29 mmol/L (22-26); VBG pCO2 29 mmHg; VBG pO2 84 mmHg
[2024-11-11 05:34] LABS: Basophils Percent Auto 0.4 % (0-2); Eosinophils Absolute Auto 0.3 X10*3/uL (0.0-0.4); Eosinophils Percent Auto 3.3 % (0-4); Hematocrit 25.4 % (42.0-52.0); Hemoglobin 8.1 g/dl (14.0-18.0); Imm Gran Abs Auto 0.05 X10*3/uL (0.00-0.03); Imm Gran Pct Auto 0.6 % (0.0-0.4); Lymphocytes Absolute Auto 2.4 X10*3/uL (1.2-4.9); Lymphocytes Percent Auto 30.2 % (20-40); MANUAL DIFF FLAG NO; Mean Corpuscular HGB Conc 31.9 g/dl (31.0-36.0); Mean Corpuscular Hemoglobin 29.7 pg (27.0-33.0); Mean Platelet Volume 9.1 fL (9.4-12.4); Monocytes Absolute Auto 0.5 X10*3/uL (0.1-1.2); Monocytes Percent Auto 6.4 % (2-11); Neutrophils Absolute Auto 4.7 x10*3/uL (2.0-8.3); Neutrophils Percent Auto 59.1 % (45-73); Platelet Count 110 X10*3/uL (160-400); Red Blood Count 2.73 X10*6/uL (4.60-5.80); Red Cell Distribution Width 17.5 % (11.0-16.0)
[2024-11-11 05:50] LABS: Venous Blood Gas Refer to POC result
[2024-11-11 05:58] LABS: Alanine Aminotransferase 8 U/L (0-40); Albumin Level 3.8 g/dL (3.5-5.0); Alkaline Phosphatase 86 U/L (39-117); Anion Gap 15 (12-20); Aspartate Amino Transferase 25 U/L (5-37); Bilirubin Total 3.7 mg/dL (0.0-1.0); Blood Urea Nitrogen 51 mg/dL (9-16); Calcium 8.9 mg/dL (8.4-10.2); Carbon Dioxide 26 mmol/L (22-29); Chloride 99 mmol/L (96-108); Creatinine Clr Calc Pharmacy 60.2; Estimated Glomerular Filt Rate > 60; Glucose Random 111 mg/dL (60-115); Magnesium 2.6 mg/dL (1.6-2.6); Phosphorus 2.8 mg/dL (2.7-4.5); Potassium 3.6 mmol/L (3.3-5.1); Sodium 136 mmol/L (135-145)
[2024-11-11] MEDS: Levothyroxine Sodium 75 MCG TABLET PO (06:31)
[2024-11-11] MEDS: 0.9 % Sodium Chloride Flush 3 ML SYRINGE IVFLUSH ×3 (07:34→21:14)
[2024-11-11] MEDS: Midodrine HCl 10 MG TABLET PO ×3 (08:01→21:13)
[2024-11-11] MEDS: Apixaban 2.5 MG TABLET PO ×2 (08:01→21:13)
--- NOTE | 2024-11-11 10:16 | PM.CCPN ---
Subjective Subjective Date of Service: 11/11/24 Interval History: 84-year-old gentleman with underlying alcoholic cirrhosis with ascites and intermittent requirements for paracentesis, AFib on anticoagulation, hypothyroidism, congestive heart failure, lymphoid leukemia [facility]09[facility]24 [facility] with hypoxia and hypotension with poor response to initial IV fluid resuscitation requiring pressor and BiPAP support. Patient started on empiric antibiotics and admitted to intensive care unit. Blood cultures growing Haemophilus. No events overnight. Titrated off pressor support. Critical Care Time (minutes): 45 Physical Exam Vital Signs: Vital Signs: Last Vital Signs Temp 98.3 F 11/11/24 08:00 Pulse 99 11/11/24 10:00 Resp 34 H 11/11/24 10:00 BP 118/58 L 11/11/24 10:00 Pulse Ox 100 11/11/24 10:00 O2 Del Method Room Air 11/11/24 10:00 O2 Flow Rate 5 11/10/24 19:00 FiO2 21 11/11/24 06:00 BMI result Body Mass Index 34.6 Const: General: no acute distress, alert and awake Eyes: Sclerae: sclerae normal EOM: EOMs intact bilaterally Neck: Neck: Yes no lymphadenopathy, Yes trachea midline and Yes supple Resp: Effort & Inspection: normal respiratory effort and no respiratory distress Auscultation: clear to auscultation bilaterally Cardio: Rate: regular rate Rhythm: regular rhythm Heart sounds: no gallops, no murmurs and no rubs GI: Inspection: Yes distended Palpation (GI): Soft to palpation and Other GI palpation findings present ( Nontender) Auscultation: normal bowel sounds Extrem: General: Yes no pedal edema, No clubbing and No cyanosis Objective Data Labs 11/11/24 04:42 11/11/24 04:42 Labs: Laboratory Results - last 24 hr 11/11/24 11/11/24 04:42 04:55 WBC 8.0 RBC 2.73 L Hgb 8.1 L Hct 25.4 L MCV 93.0 MCH 29.7 MCHC 31.9 RDW 17.5 H Plt Count 110 L MPV 9.1 L Immature Gran % (Auto) 0.6 H Neut % (Auto) 59.1 Lymph % (Auto) 30.2 [place] % (Auto) 6.4 Eos % (Auto) 3.3 Baso % (Auto) 0.4 Lymph # (Auto) 2.4 [place] # (Auto) 0.5 Eos # (Auto) 0.3 Baso # (Auto) 0.0 Abs Immat Gran (auto) 0.05 H Absolute Neuts (auto) 4.7 Absolute Nucleated RBC 0.000 Nucleated RBC % (auto) 0.0 VBG pH 7.60 H* VBG pCO2 29 VBG pO2 84 VBG HCO3 29 H VBG O2 Saturation 99.0 VBG Base Excess 8.4 Sodium 136 Potassium 3.6 Chloride 99 Carbon Dioxide 26 Anion Gap 15 BUN 51 H Creatinine 1.13 Estim Creat Clear Calc 60.2 Estimated GFR > 60 Random Glucose 111 Calcium 8.9 Phosphorus 2.8 Magnesium 2.6 Total Bilirubin 3.7 H AST 25 ALT 8 Alkaline Phosphatase 86 Total Protein 6.0 L Albumin 3.8 Microbiology Microbiology Results: Microbiology 11/09/24 06:43 Blood - Venous Blood Culture - Preliminary Haemophilus species 11/09/24 06:41 Blood - Venous Blood Culture - Preliminary Haemophilus species Progress Note: A&P Assessment and plan (1) CHF (congestive heart failure): Status: Acute (2) Atrial fibrillation: Status: Acute (3) Gram-negative bacteremia: Status: Acute (4) Alcoholic cirrhosis: Status: Acute Plan Assessment: 84-year-old gentleman with underlying alcoholic cirrhosis, AFib, congestive heart failure admitted with Haemophilus bacteremia with GI source. Plan: Neuro: No acute issues. Cardiac: Shock, resolved, titrated off pressor support.. Likely underlying congestive heart failure. 2D echocardiogram with biatrial enlargement. Pulmonary: Acute hypoxic respiratory failure with bibasilar consolidation likely secondary to aspiration, resolved. Titrated to room air. Renal: No acute issues. Endo: No acute issues. GI: No acute issues. Underlying hepatic alcoholic cirrhosis with recurrent ascites. ID: Haemophilus bacteremia, continue ceftriaxone. Heme/Onc: No acute issues. Psych: No acute issues. Miscellaneous: No acute issues. Prophylaxis: Apixaban Diet: Regular Critical care time spent: 45 minutes Quality Stroke Does the patient have a stroke diagnosis?: No VTE Prior VTE?: No VTE Risk Level:: Medical - moderate - high VTE Device Contraindication: Treatment Not Indicated VTE Drug Contraindication: Treatment Not Indicated
[2024-11-11] MEDS: cefTRIAXone sodium 2 GM VIAL IVPUSH (10:27)
[2024-11-11] MEDS: Acetaminophen 325 MG TABLET 650 MG PO (10:53)
--- NOTE | 2024-11-11 11:52 | PC.NURSE ---
Assumed care approx. @ 0700 Neuro: Alert & oriented x2? Respiratory: On 4L Lisa [place], SpO2 95%. Wheezing sounds bilaterally. Cardiac: Afib on tele. Goal systolic BP >[address] Byrd. GI/: Abd large/ distended, + bowel sounds, External catheter in place. Skin: impaired skin integrity see skin assessment? Infectious: IV antibiotics Temp: Afebrile Lines: peripheral IV Plan: Transfer to [facility]. No longer requiring ICU-level care.
--- NOTE | 2024-11-11 12:53 | PM.EVENT ---
Event Note Date of Service: 11/11/24 Event Note: This is an 84-year-old gentleman with underlying alcoholic cirrhosis with ascites and intermittent requirements for paracentesis, AFib on anticoagulation, hypothyroidism, congestive heart failure, lymphoid leukemia [facility] with [facility] and hypotension with poor response to initial IV fluid resuscitation requiring pressor and BiPAP support. Patient started on empiric antibiotics and admitted to intensive care unit. Blood cultures growing Haemophilus. Titrated off vasopressor support and downgraded to medical floor 11/11 Septic shock due to Haemophilus bacteremia weaned off of pressor support on midorine at baseline, dose has been increased to 10 tid. bp remains soft 06/18 blood cultures growing haemophilus sp- final speciation and susceptibilities pending On ceftriaxone Acute respiratory failure with hypoxia consolidative opacities b/l lower lobes, RUL ?source of bacteremia Weaned to room air ETOH Liver cirrhosis with recurrent ascites BP chronically low continue midodrine probably chronic thrombocytopenia, no baseline labs diuretics on hold continue prn lactulose chronic HFpEF hold torsemide, spironolactone for shock/hypotension Atrial fibrillation, unspecified coreg on hold Continue anticoagulation with Eliquis Hypothyroidism Continue Synthroid BPH hold tamsulosin Time Spent With Patient Time: Total time managing care of this patient today ____ minutes.
[2024-11-11] MEDS: Lactulose 20 GM/30 ML SOLUTION PO (15:54)
[2024-11-11] MEDS: levalbuterol HCL 1.25 MG/3 ML VIAL.NEB INHALE (20:25)
[2024-11-11] MEDS: HYDROmorphone HCl 0.5 MG/0.5 ML SYRINGE IVPUSH (23:42)
[2024-11-12] VITALS (12 sets, daily range): BP systolic 93–116; BP diastolic 52–75; PULSE 70–107; RESP 18–26; TEMP 37.3–37.7; O2SAT 92–96
--- NOTE | 2024-11-12 00:06 | P.CNID_ITS ---
History of Present Illness Data of Consult Service Date: 11/11/24 Requesting physician: Riana Denton Primary Care Provider: Abhijit Oates MD HPI Reason for consult: hemophilus influenza bacteremia He presents with weakness and cough. Blood culture shows Hflu. He says he has cough. Review of Systems 2 Review of Systems: Yes all other systems are reviewed and are negative PMFSH Past Medical History Medical History Adequate anticoagulation on anticoagulant therapy Gout Rosacea Hypertension Hypothyroidism Atrial fibrillation Alcoholic cirrhosis Lymphoid leukemia CHF (congestive heart failure) Social History Social History Household Members: Spouse Housing: Detention Do you presently have visiting nurse or other home services: No Unable to assess alcohol history related to: Unable to respond Patient Tobacco Use Status: Never used Tobacco Smoked in Last 30 Days: No Use of substances other than those prescribed or required for medical reasons: Unable to respond Currently Displaying Signs/Symptoms of Drug Intoxication Withdrawal: No Have you been hit, kicked, punched, or otherwise hurt by someone within the past year? If so, by whom?: No Do you feel safe in your current relationship?: Yes Is there a partner from a previous relationship who is making you feel unsafe now?: No Are you made to feel afraid or neglected: No Advance Directives: Yes Advance Directives Information Provided: No Advance Directives on File: No Advance Directives Date on File: 11/09/24 Do you have a plan to hurt others: No Plan Recently lost weight without trying: No Eating poorly because of decreased appetite: Yes Nutrition Risks: Dental problems Narrative Narrative: He has Hflu bacteremia 14 total antibioics. Meds Allergies Allergy/AdvReac Type Severity Reaction Status Date / Time No Known Allergies Allergy Verified 11/09/24 06:33 Active Medications: Current Medications Acetaminophen (Acetaminophen 325 Mg Tablet) 650 mg PO Q4H PRN PRN Reason: Pain, Mild 1-3,fever,headache Last Admin: 11/11/24 10:53 Dose: 650 mg Albuterol Sulfate (Albuterol Sulfate (0.083%) 2.5 Mg/3 Ml Vial.Neb) 2.5 mg INHALE Q2H PRN PRN Reason: Wheezing Apixaban (Apixaban 2.5 Mg Tablet) 2.5 mg PO BID COUNTS INCLUDE 234 BEDS AT THE [facility] Last Admin: 11/11/24 21:13 Dose: 2.5 mg Ceftriaxone Sodium (Ceftriaxone Sodium 2 Gm Vial) 2 gm IVPUSH Q24H COUNTS INCLUDE 234 BEDS AT THE [facility] Last Admin: 11/11/24 10:27 Dose: 2 gm Lactulose (Lactulose 20 Gm/30 Ml Solution) 20 gm PO DAILY PRN PRN Reason: Constipation Last Admin: 11/11/24 15:54 Dose: 20 gm Levothyroxine Sodium (Levothyroxine Sodium 75 Mcg Tablet) 75 mcg PO DAILY@0600 COUNTS INCLUDE 234 BEDS AT THE [facility] Last Admin: 11/11/24 06:31 Dose: 75 mcg Midodrine (Midodrine Hcl 10 Mg Tablet) 10 mg PO TID COUNTS INCLUDE 234 BEDS AT THE [facility] Last Admin: 11/11/24 21:13 Dose: 10 mg Sodium Chloride (0.9 % Sodium Chloride Flush 3 Ml Syringe) 3 ml IVFLUSH QSHIFT COUNTS INCLUDE 234 BEDS AT THE [facility] Last Admin: 11/11/24 21:14 Dose: 3 ml Home Medications ?Medication ?Instructions ?Recorded ?Confirmed ?Last Taken ?Type acetaminophen 500 mg tablet 1,000 mg PO Q6H PRN Pain/F ever 11/09/24 11/09/24 Unknown History allopurinol 300 mg tablet 300 mg PO BEDTIME 11/09/24 0 11/09/24 Unknown History apixaban 2.5 mg tablet (Eliquis) 2.5 mg PO BID 5 11/09/24 Unknown History bisacodyl 10 mg rectal suppository 10 mg KS DAILY PRN Constipation 11/09/24 11/09/24 Unknown History calcium carbonate 600 mg PO DAILY 11/09/24 Unknown History carvedilol 6.25 mg tablet 6.25 mg PO BID 11/09/2410/16 Unknown History cholecalciferol (vitamin D3) 25 50 mcg PO DAILY 11/09/24 Unknown History mcg (1,000 unit) tablet (Vitamin D3) empagliflozin 10 mg tablet 10 mg PO DAILY 11/09/24 Unknown History (Jardiance) lactulose 10 gram/15 mL oral 30 ml PO DAILY PRN Consti pation 11/09/24 11/09/24 Unknown History solution levothyroxine 75 mcg tablet 75 mcg PO DAILY@0600 11/0911/09/24 Unknown History magnesium hydroxide 400 mg/5 mL 30 ml PO DAILY PRN Con stipation 11/09/24 11/09/24 Unknown History oral suspension (Milk of Magnesia) midodrine 5 mg tablet 5 mg PO TID 11/09/24 5 Unknown History polyethylene glycol 3350 17 gram 17 g PO DAILY PRN Con stipation 11/09/24 11/09/24 Unknown History oral powder packet (Miralax) spironolactone 50 mg tablet 50 mg PO DAILY 11/09/24 Unknown History tamsulosin 0.4 mg capsule 0.8 mg PO DAILY 11/09/24 Unknown History torsemide 20 mg tablet 60 mg PO BID 11/09/24 Unknown History Physical Exam 2 Vital Signs: Vital Signs: Last Vital Signs Temp 99.0 F 11/11/24 23:26 Pulse 102 H 11/11/24 23:26 Resp 32 H 11/11/24 23:26 BP 130/67 11/11/24 23:26 Pulse Ox 94 11/11/24 23:26 O2 Del Method Nasal Cannula 11/11/24 23:26 O2 Flow Rate 2 11/11/24 23:26 FiO2 21 11/11/24 06:00 BMI result Body Mass Index 34.6 Results Labs 11/11/24 04:42 11/11/24 04:42 Labs: Short CBC 11/11/24 Range/Units 04:42 WBC 8.0 (4.8-10.8) X10*3/uL Hgb 8.1 L (14.0-18.0) g/dl Hct 25.4 L (42.0-52.0) % Plt Count 110 L (160-400) X10*3/uL BMP 11/11/24 04:42 Sodium 136 Potassium 3.6 Chloride 99 Carbon Dioxide 26 BUN 51 H Creatinine 1.13 Calcium 8.9 Liver Function 11/11/24 Range/Units 04:42 Total Bilirubin 3.7 H (0.0-1.0) mg/dL AST 25 (5-37) U/L ALT 8 (0-40) U/L Alkaline Phosphatase 86 (39-117) U/L Albumin 3.8 (3.5-5.0) g/dL Microbiology Microbiology Results: Microbiology 11/09/24 06:41 Blood - Venous Blood Culture - Final Haemophilus influenzae 11/09/24 06:43 Blood - Venous Blood Culture - Preliminary Haemophilus influenzae
[2024-11-12] MEDS: Levothyroxine Sodium 75 MCG TABLET PO (05:30)
--- NOTE | 2024-11-12 06:34 | PC.NURSE ---
Upon assessment pt appeared to be increase WOB, respiratory rate of 32. Vitals taken, see charting. Patient states he feels fine. MD notified and came to bedside. Dilaudid 0.5mg IVP ordered and administered. Chest x-ray ordered and obtained. Cpap ordered and patient placed on cpap. Patient resting comfortably in bed.
[2024-11-12 06:42] LABS: MANUAL DIFF FLAG NO
[2024-11-12 07:10] LABS: Basophils Percent Auto 0.3 % (0-2); Eosinophils Absolute Auto 0.1 X10*3/uL (0.0-0.4); Hematocrit 26.5 % (42.0-52.0); Hemoglobin 8.6 g/dl (14.0-18.0); Imm Gran Abs Auto 0.08 X10*3/uL (0.00-0.03); Imm Gran Pct Auto 0.7 % (0.0-0.4); Lymphocytes Absolute Auto 3.1 X10*3/uL (1.2-4.9); Lymphocytes Percent Auto 26.8 % (20-40); Mean Corpuscular HGB Conc 32.5 g/dl (31.0-36.0); Mean Corpuscular Hemoglobin 29.9 pg (27.0-33.0); Monocytes Percent Auto 8.5 % (2-11); Neutrophils Absolute Auto 7.3 x10*3/uL (2.0-8.3); Neutrophils Percent Auto 62.7 % (45-73); Platelet Count 110 X10*3/uL (160-400); Red Blood Count 2.88 X10*6/uL (4.60-5.80); Red Cell Distribution Width 17.4 % (11.0-16.0); White Blood Count 11.7 X10*3/uL (4.8-10.8)
[2024-11-12 07:14] LABS: Albumin Level 3.8 g/dL (3.5-5.0); Anion Gap 15 (12-20); Blood Urea Nitrogen 50 mg/dL (9-16); Calcium 8.9 mg/dL (8.4-10.2); Carbon Dioxide 26 mmol/L (22-29); Chloride 100 mmol/L (96-108); Creatinine Clr Calc Pharmacy 60.2; Estimated Glomerular Filt Rate > 60; Glucose Random 119 mg/dL (60-115); Magnesium 2.7 mg/dL (1.6-2.6); Phosphorus 2.6 mg/dL (2.7-4.5); Potassium 3.9 mmol/L (3.3-5.1); Sodium 137 mmol/L (135-145)
[2024-11-12] MEDS: Midodrine HCl 10 MG TABLET PO ×3 (08:51→19:56)
[2024-11-12] MEDS: Apixaban 2.5 MG TABLET PO ×2 (08:51→19:56)
[2024-11-12] MEDS: cefTRIAXone sodium 2 GM VIAL IVPUSH (08:59)
[2024-11-12] MEDS: Albuterol Sulfate (0.083%) 2.5 MG/3 ML VIAL.NEB INHALE ×2 (09:05→15:22)
--- NOTE | 2024-11-12 11:16 | P.PNIM_ITS ---
Subjective Subjective Date of Service: 11/12/24 Interval History: seen and examined this morning follow up for respiratory failure/pneumonia/bacteremia Reportedly short of breath overnight, chest x-ray showing worsening airspace disease cough productive of thick phlegm RR increased, patient denies sob or discomfort Review of Systems Review of Systems: Yes all other systems are reviewed and are negative Constitutional Constitutional: Denies chills and Denies fever(s) Physical Exam 2 Vital Signs: Vital Signs: Last Vital Signs Temp 99.8 F 11/12/24 11:12 Pulse 101 H 11/12/24 11:12 Resp 18 11/12/24 11:12 BP 116/56 L 11/12/24 11:12 Pulse Ox 95 11/12/24 11:12 O2 Del Method Nasal Cannula 11/12/24 11:12 O2 Flow Rate 3 11/12/24 11:12 FiO2 21 11/11/24 06:00 BMI result Body Mass Index 34.6 Const: General: cooperative, no acute distress, alert and awake Nutritional Appearance: overweight Orientation/consciousness: patient oriented x3 Resp: Other: increased work of breathing (someone chronic for pt per ) Effort & Inspection: able to speak in complete sentences Cardio: Rate: tachycardic GI: Other: softly distended; non-tender Neuro: General: patient oriented x3 Extrem: General: No pedal edema Objective Data Active Medications Acetaminophen (Acetaminophen 325 Mg Tablet) 650 mg PO Q4H PRN PRN Reason: Pain, Mild 1-3,fever,headache Last Admin: 11/11/24 10:53 Dose: 650 mg Documented By: ATA Albuterol Sulfate (Albuterol Sulfate (0.083%) 2.5 Mg/3 Ml Vial.Neb) 2.5 mg INHALE Q2H PRN PRN Reason: Wheezing Last Admin: 11/12/24 09:05 Dose: 2.5 mg Documented By: AUBREY Apixaban (Apixaban 2.5 Mg Tablet) 2.5 mg PO BID [facility] Last Admin: 11/12/24 08:51 Dose: 2.5 mg Documented By: LEON Ceftriaxone Sodium (Ceftriaxone Sodium 2 Gm Vial) 2 gm IVPUSH Q24H [facility] Last Admin: 11/12/24 08:59 Dose: 2 gm Documented By: LEON Guaifenesin/Dextromethorphan (Guaifenesin Dm 600/30 1 Tab Tab.Er.12h) 1 tab PO BID [facility] Lactulose (Lactulose 20 Gm/30 Ml Solution) 20 gm PO DAILY PRN PRN Reason: Constipation Last Admin: 11/11/24 15:54 Dose: 20 gm Documented By: PREETHI Levothyroxine Sodium (Levothyroxine Sodium 75 Mcg Tablet) 75 mcg PO DAILY@0600 [facility] Last Admin: 11/12/24 05:30 Dose: 75 mcg Documented By: NARGIS Midodrine (Midodrine Hcl 10 Mg Tablet) 10 mg PO TID [facility] Last Admin: 11/12/24 08:51 Dose: 10 mg Documented By: CASANDRAFAClement Sodium Chloride (0.9 % Sodium Chloride Flush 3 Ml Syringe) 3 ml IVFLUSH QSHIFT [facility] Last Admin: 11/12/24 07:28 Dose: Not Given Documented By: LEON Non-Admin Reason: Previously Administered Labs 11/12/24 06:34 11/12/24 06:34 Labs: Laboratory Results - last 24 hr 11/12/24 06:34 MCV 92.0 MCH 29.9 MCHC 32.5 RDW 17.4 H Plt Count 110 L MPV 9.0 L Immature Gran % (Auto) 0.7 H Neut % (Auto) 62.7 Lymph % (Auto) 26.8 [place] % (Auto) 8.5 Eos % (Auto) 1.0 Baso % (Auto) 0.3 Lymph # (Auto) 3.1 [place] # (Auto) 1.0 Eos # (Auto) 0.1 Baso # (Auto) 0.0 Abs Immat Gran (auto) 0.08 H Absolute Neuts (auto) 7.3 Absolute Nucleated RBC 0.000 Nucleated RBC % (auto) 0.0 Anion Gap 15 Estim Creat Clear Calc 60.2 Estimated GFR > 60 Random Glucose 119 H Calcium 8.9 Phosphorus 2.6 L Magnesium 2.7 H Albumin 3.8 Microbiology Microbiology Results: Microbiology 11/09/24 06:43 Blood Culture - Final Blood - Venous Haemophilus influenzae 11/09/24 06:41 Blood Culture - Final Blood - Venous Haemophilus influenzae Assessment and Plan (1) Alcoholic cirrhosis: Status: Acute (2) Pneumonia: Status: Acute (3) Acute respiratory failure with hypoxia: Status: Acute Plan This is an 84-year-old gentleman with underlying alcoholic cirrhosis with ascites and intermittent requirements for paracentesis, AFib on anticoagulation, hypothyroidism, congestive heart failure, lymphoid leukemia [facility] with hypoxia and hypotension with poor response to initial IV fluid resuscitation requiring pressor and BiPAP support. Patient started on empiric antibiotics and admitted to intensive care unit. Blood cultures growing Haemophilus. Titrated off vasopressor support and downgraded to medical floor 11/11 Septic shock due to Haemophilus bacteremia/pneumonia weaned off of pressor support on midorine at baseline, dose has been increased to 10 tid 06/18 blood cultures growing haemophilus influenzae, sensitivities pending Continue IV ceftriaxone Acute respiratory failure with hypoxia due to pneumonia Continue supplemental oxygen as needed, wean as tolerated Breathing likely complicated by cirrhosis with ascites although patient currently declining paracentesis ETOH Liver cirrhosis with recurrent ascites BP chronically low continue midodrine probably chronic thrombocytopenia, no baseline labs diuretics initially on hold for sepsis/low bp, resume as bp allows continue prn lactulose currently declines paracentesis chronic HFpEF hold torsemide, spironolactone for shock/hypotension Atrial fibrillation, unspecified coreg on hold Continue anticoagulation with Eliquis Hypothyroidism Continue Synthroid BPH hold tamsulosin Morbid obesity BMI 34.6. Component of this weight likely ascites DVT prophylaxis-eliquis Code status DNR/DNI dispo - likely returned to short-term rehab Patient requires ongoing inpatient stay for management of respiratory failure requiring supplemental oxygen and IV antibiotics, possible paracentesis Quality Stroke Does the patient have a stroke diagnosis?: No VTE Prior VTE?: No VTE Risk Level:: Medical - moderate - high VTE Device Contraindication: Treatment Not Indicated VTE Drug Contraindication: Treatment Not Indicated
[2024-11-12] MEDS: guaiFENesin DM 600/30 1 TAB TAB.ER.12H PO ×2 (11:24→19:56)
[2024-11-12] MEDS: Spironolactone 25 MG TABLET PO (15:27)
[2024-11-12] MEDS: 0.9 % Sodium Chloride Flush 3 ML SYRINGE IVFLUSH (20:00)
[2024-11-13 03:57] VITALS: BP 121/68; PULSE 100; RESP 17; TEMP 36.9; O2SAT 95
[2024-11-13 04:19] VITALS: PULSE 99; RESP 20; O2SAT 96
[2024-11-13 06:00] VITALS: BMI 35.0
[2024-11-13] MEDS: Levothyroxine Sodium 75 MCG TABLET PO (06:32)
[2024-11-13 07:55] VITALS: BP 100/63; PULSE 85; RESP 20; TEMP 36.8; O2SAT 96
[2024-11-13 09:00] LABS: Hematocrit 26.4 % (42.0-52.0); Hemoglobin 8.1 g/dl (14.0-18.0); Mean Corpuscular HGB Conc 30.7 g/dl (31.0-36.0); Mean Corpuscular Hemoglobin 29.6 pg (27.0-33.0); Mean Corpuscular Volume 96.4 fL (80.0-98.0); Mean Platelet Volume 8.7 fL (9.4-12.4); Platelet Count 114 X10*3/uL (160-400); Red Blood Count 2.74 X10*6/uL (4.60-5.80); Red Cell Distribution Width 17.4 % (11.0-16.0); White Blood Count 11.3 X10*3/uL (4.8-10.8)
[2024-11-13 09:11] LABS: Anion Gap 10 (12-20); Blood Urea Nitrogen 59 mg/dL (9-16); Calcium 8.5 mg/dL (8.4-10.2); Carbon Dioxide 30 mmol/L (22-29); Chloride 99 mmol/L (96-108); Creatinine Clr Calc Pharmacy 53.9; Estimated Glomerular Filt Rate 54; Glucose Random 127 mg/dL (60-115); Potassium 4.2 mmol/L (3.3-5.1); Sodium 135 mmol/L (135-145)
[2024-11-13 09:12] LABS: INTERNATIONAL NORM RATIO 1.7 (0.9-1.1); Prothrombin Time 19.9 SEC (10.9-12.4)
--- NOTE | 2024-11-13 09:54 | HO.PM.IMPN ---
Subjective Subjective Date of Service: 11/13/24 Interval History: Seen and examined this morning Follow-up for respiratory failure, bacteremia Increasing oxygen requirements overnight, less alert thisam. opens his eyes and continues to deny sob. saying he feels fine but adamantly refusing paracentesis at this time continues to be tachypneic at bedside Review of Systems Review of Systems: Yes all other systems are reviewed and are negative Constitutional Constitutional: Denies chills and Denies fever(s) Cardiovascular Cardiovascular: Denies chest pain and Denies dyspnea Respiratory Respiratory: Reports cough and Denies dyspnea Physical Exam Vital Signs: Vital Signs: Last Vital Signs Temp 98.2 F 11/13/24 07:55 Pulse 85 11/13/24 07:55 Resp 20 11/13/24 07:55 BP 100/63 11/13/24 07:55 Pulse Ox 96 11/13/24 07:55 O2 Del Method Nasal Cannula 11/13/24 07:55 O2 Flow Rate 5 11/13/24 07:55 FiO2 21 11/11/24 06:00 BMI result Body Mass Index 35.0 Const: General: cooperative, no acute distress, alert and awake Nutritional Appearance: overweight Orientation/consciousness: oriented to person and oriented to place Resp: Other: shallow respirations, tachypneic Cardio: Rate: regular rate GI: Other: abdomen slightly more distended this am, not tense; non-tender Neuro: Other: grossly nonfocal General: oriented to person, oriented to place and moves all extremities Extrem: General: No pedal edema Objective Data Active Medications Acetaminophen (Acetaminophen 325 Mg Tablet) 650 mg PO Q4H PRN PRN Reason: Pain, Mild 1-3,fever,headache Last Admin: 11/11/24 10:53 Dose: 650 mg Documented By: ATA Albuterol Sulfate (Albuterol Sulfate (0.083%) 2.5 Mg/3 Ml Vial.Neb) 2.5 mg INHALE Q2H PRN PRN Reason: Wheezing Last Admin: 11/12/24 15:22 Dose: 2.5 mg Documented By: AUBREY Apixaban (Apixaban 2.5 Mg Tablet) 2.5 mg PO BID [facility] Last Admin: 11/12/24 19:56 Dose: 2.5 mg Documented By: SAGE Ceftriaxone Sodium (Ceftriaxone Sodium 2 Gm Vial) 2 gm IVPUSH Q24H [facility] Last Admin: 11/12/24 08:59 Dose: 2 gm Documented By: LEON Guaifenesin/Dextromethorphan (Guaifenesin Dm 600/30 1 Tab Tab.Er.12h) 1 tab PO BID [facility] Last Admin: 11/12/24 19:56 Dose: 1 tab Documented By: SAGE Lactulose (Lactulose 20 Gm/30 Ml Solution) 20 gm PO DAILY PRN PRN Reason: Constipation Last Admin: 11/11/24 15:54 Dose: 20 gm Documented By: PREETHI Levothyroxine Sodium (Levothyroxine Sodium 75 Mcg Tablet) 75 mcg PO DAILY@0600 [facility] Last Admin: 11/13/24 06:32 Dose: 75 mcg Documented By: SAGE Midodrine (Midodrine Hcl 10 Mg Tablet) 10 mg PO TID [facility] Last Admin: 11/12/24 19:56 Dose: 10 mg Documented By: SAGE Sodium Chloride (0.9 % Sodium Chloride Flush 3 Ml Syringe) 3 ml IVFLUSH QSHIFT [facility] Last Admin: 11/12/24 20:00 Dose: 3 ml Documented By: SAGE Spironolactone (Spironolactone 25 Mg Tablet) 25 mg PO DAILY [facility]; Protocol Last Admin: 11/12/24 15:27 Dose: 25 mg Documented By: ADDIE Labs 11/13/24 08:45 11/13/24 08:45 Labs: Laboratory Results - last 24 hr 11/13/24 08:45 MCV 96.4 MCH 29.6 MCHC 30.7 L RDW 17.4 H Plt Count 114 L MPV 8.7 L Absolute Nucleated RBC 0.000 Nucleated RBC % (auto) 0.0 PT 19.9 H INR 1.7 H Anion Gap 10 L Estim Creat Clear Calc 53.9 Estimated GFR 54 Random Glucose 127 H Calcium 8.5 Microbiology Microbiology Results: Microbiology 11/09/24 06:43 Blood Culture - Final Blood - Venous Haemophilus influenzae Assessment and Plan (1) Gram-negative bacteremia: Status: Acute (2) Acute respiratory failure with hypoxia: Status: Acute Plan This is an 84-year-old gentleman with underlying alcoholic cirrhosis with ascites and intermittent requirements for paracentesis, AFib on anticoagulation, hypothyroidism, congestive heart failure, lymphoid leukemia presented 11/09/2024 from care home facility with hypoxia and hypotension with poor response to initial IV fluid resuscitation requiring pressor and BiPAP support. Patient started on empiric antibiotics and admitted to intensive care unit. Blood cultures growing Haemophilus. Titrated off vasopressor support and downgraded to medical floor 11/11 Septic shock due to Haemophilus bacteremia/pneumonia weaned off of pressor support on midorine at baseline, dose has been increased to 10 tid - blood pressure remains soft 2/2 blood cultures growing haemophilus influenzae, sensitivities pending Continue IV ceftriaxone Acute respiratory failure with hypoxia due to pneumonia Continue supplemental oxygen as needed, oxygen requirements increased Breathing likely complicated by cirrhosis with ascites although patient currently declining paracentesis Blood pressure too low to tolerate diuretic ETOH Liver cirrhosis with recurrent ascites BP chronically low continue midodrine probably chronic thrombocytopenia, no baseline labs diuretics initially on hold for sepsis/low bp, resume as bp allows continue prn lactulose currently declines paracentesis chronic HFpEF hold torsemide, spironolactone for shock/hypotension Atrial fibrillation, unspecified coreg on hold Continue anticoagulation with Eliquis Hypothyroidism Continue Synthroid BPH hold tamsulosin Morbid obesity BMI 34.6. Component of this weight likely ascites DVT prophylaxis-eliquis Code status DNR/DNI Goals of care: discussed with at bedside. Patient does not want paracentesis, due to low blood pressure difficult to diurese, ascites contributing to dyspnea and hypoxia. Patient requesting hospice consult, he would not want any invasive intervention. Leaning toward changing to comfort care at this time we will check VBG, ammonia and consider changing code status to [employer] depending on results and ongoing clinical course. Patient requires ongoing inpatient stay for management of respiratory failure requiring supplemental oxygen and IV antibiotics, possible paracentesis Quality Stroke Does the patient have a stroke diagnosis?: No VTE Prior VTE?: No VTE Risk Level:: Medical - moderate - high VTE Device Contraindication: Treatment Not Indicated VTE Drug Contraindication: Treatment Not Indicated
[2024-11-13 10:10] LABS: VBG Base Excess 6.6 mmol/L; VBG HCO3 32 mmol/L (22-26); VBG pCO2 56 mmHg; VBG pH 7.37 (7.32-7.43); VBG pO2 97 mmHg
[2024-11-13 10:12] LABS: Ammonia 79 umol/L (13-55)
[2024-11-13 10:15] LABS: Venous Blood Gas Refer to POC result
[2024-11-13 11:33] VITALS: BP 103/64; PULSE 101; RESP 20; TEMP 36.7; O2SAT 94
--- NOTE | 2024-11-13 12:10 | W.MHC.ACPN ---
Advanced Care Planning Note Advanced Care Planning Note Discussed with: patient and family member(s) Time spent (in minutes): 30 Narrative: After further discussion with patient and his at the bedside patient does not want any further aggressive management, no invasive management. Does not want paracentesis. Prefers no lines or tubes. Due to worsening respiratory status, chronic comorbidities including alcoholic liver cirrhosis, Ultimately plan to discharge home with hospice. In the meantime they want to discontinue treatment and transition to comfort measures only. This was discussed in detail with the patient's community nurse at the bedside as well. They understand the all baseline medications and antibiotics will be discontinued, no further treatment will be pursued. The plan will be to start on comfort medications only including morphine, Ativan, scopolamine. Everyone is in agree Problems Discussed (1) Gram-negative bacteremia: (2) Acute respiratory failure with hypoxia:
--- NOTE | 2024-11-13 12:11 | P.CDIM_ITS ---
PROVIDER RESPONSE TEXT: To clarify, the appropriate diagnosis supported by the clinical indicators: Aspiration Pneumonia: possible QUERY TEXT: PHYSICIAN'S DOCUMENTATION REQUEST Date of Query: 11/13/2024 09:27 AM EDT Patient Name: Myles Monsivais Admit Date: 11/09/2024 Dear Debby FAJARDO, A review of the medical record indicates additional documentation may be needed. Please review below and update the documentation accordingly. Clinical Indicators: ICU progress notes - Acute hypoxic respiratory failure with bibasilar consolidation likely secondary to aspiration, improved. Titrated to room air. ID: Empiric coverage for pulmonary aspiration. Based on the above, could you clarify in the Progress Notes further specificity regarding any further specifics to the noted Aspiration: Aspiration Pneumonia possible, probable, suspected, etc. Aspiration Pneumonitis due to food, vomitus, mucus, solids or liquids etc. Other specifics to the documented Aspiration if known please specify Other (explain) Clinically unable to determine (explain) Thank you, Leslie Moura, CCS, CDIS Use of terms such as suspected, likely, concern for, or probable (associated with a specific diagnosis that is being evaluated, monitored, or treated as if it exists) are acceptable and can be coded in the inpatient setting, when documented at the time of discharge. Please use your independent medical judgment in providing your response. THIS QUERY IS PART OF THE PERMANENT MEDICAL RECORD
--- NOTE | 2024-11-13 15:20 | HO.WOUND ---
Wound Consult: Initial 84yr old?male admitted to [facility] on 11/09/24 - See progress notes and H&P for detailed history.? Wound consult placed for Right Rene wound.? Patient agreeable to assessment and photo documentation.? Patient is not able to recall cause of injury, evidence of venous dermatitis with dark hyperpigmented tissue and hemosiderin staining noted - evidence of prior swelling noted. Heel assessed to be intact no PI noted and floating off of bed surface with use of pillows. Right Rene Etiology: Venous wound ??Present on Admission Measurements: 1cm x 2.5cm x 0.1cm Wound Bed: red hypergranulated tissue Drainage / Odor: sanginous when cleansed Edges: ? irregular attached Raquel wound: hemosiderin staining evidence of prior swelling noted? No Induration, Fluctuance or Warmth noted Pain: denies Goals of Treatment: ? Medihoney to treat moisture and hypergranulation tissue Recommendations: 1. Turn and Reposition every 2 hours and as needed for patient comfort.? Use pillows or wedges to support off loading positions. 2. Off Load all bony prominences with use of pillows and heel boots if needed.? Apply Preventative foams where needed. ? 3. Monitor for incontinence and moisture control, use barrier creams when needed for prevention and treatment. 4. Provide adequate and supplemental nutrition.? 5. Order low air loss mattress. 6. When applicable maintain blood glucose levels per Providers order. Right rene - Off Load heel from surface of bed with use of pillows - Cleanse with NS moist gauze, pat dry. Apply Skin prep to periwound. ?Apply layer of Medihoney to wound bed. ?Cover with dry gauze dressing, change every other day and PRN.? Medihoney available from wound nurse ? tube left at bedside for use. Re-consult wound care Nurse for wound deterioration or wound changes.
--- NOTE | 2024-11-13 15:29 | MHC.CM.PN ---
Pt. was going to go back to [facility], family stopped holding the bed, his condition has changed and goal of care is now Hospice. Referral in for [facility], pt. may stay here or go home with Hospice services.
[2024-11-13] MEDS: Scopolamine 1.5 MG PATCH.TD.3 TRANSDERMA (15:46)
[2024-11-13] MEDS: Morphine Sulfate 2 MG/ML CARTRIDGE IVPUSH ×2 (16:02→16:16)
[2024-11-13] MEDS: 0.9 % Sodium Chloride Flush 3 ML SYRINGE IVFLUSH (16:19)
--- NOTE | 2024-11-13 16:50 | P.DS_ITS ---
DS: Providers Provider Date of Service: 11/13/24 Date of admission: 11/09/24 08:51 Date of discharge: 11/13/24 Primary care physician: Abhijit Oates MD Consults: 11/10/24 12:25 Consult to Wound Care Routine Reason for consultation: right lower leg venous stasis 11/11/24 13:39 Consult to Infectious Diseases Routine Consulting Provider: [facility] Reason for consultation: haemophilus bacteremia Has provider been notified: No Attending physician on discharge: Tomás Luna Discharging clinician: Debby Senior DS: Diagnosis Discharge Diagnosis (1) Gram-negative bacteremia: Status: Acute (2) Acute respiratory failure with hypoxia: Status: Acute DS: Summary Hospital Course Hospital Course: This is an 84 year old male with a history of liver cirhosis who represnted at the emergency dept with hypotension poorly responsive to fluid and was admitted to the ICU for vasopressive support found to have pnemonia and h. flu bacteremia. He was treated with antibiotics but oxygen requirements and respiratory status continued to worsen and his mental status deteriorated. patient did not want invasive intervention and he and family have elected to comfort measures/ hospice care. He will readmitted under [facility] hospice. Time Attestation Discharge Coordination Time (in mins): 32 Quality: Safe Use of Opioids Does Pt have an Active Cancer Diagnosis on the Problem List?: No Quality: Stroke Does the patient have a stroke diagnosis?: No Physical Exam Vital Signs: Vital Signs: Last Vital Signs Temp 98.0 F 11/13/24 11:33 Pulse 101 H 11/13/24 11:33 Resp 20 11/13/24 11:33 BP 103/64 11/13/24 11:33 Pulse Ox 94 11/13/24 11:33 O2 Del Method Nasal Cannula 11/13/24 11:33 O2 Flow Rate 1 11/13/24 11:33 FiO2 21 11/11/24 06:00 BMI result Body Mass Index 35.0 Const: Other: sleepy Resp: Other: increased work of breathing GI: Inspection: Yes distended DS: Data Data Completed and Pending Labs on day of discharge: Laboratory Results - last 24 hr 11/13/24 11/13/24 11/13/24 08:45 09:58 10:04 WBC 11.3 H RBC 2.74 L Hgb 8.1 L Hct 26.4 L MCV 96.4 MCH 29.6 MCHC 30.7 L RDW 17.4 H Plt Count 114 L MPV 8.7 L Absolute Nucleated RBC 0.000 Nucleated RBC % (auto) 0.0 PT 19.9 H INR 1.7 H VBG pH 7.37 VBG pCO2 56 VBG pO2 97 VBG HCO3 32 H VBG O2 Saturation 100.0 VBG Base Excess 6.6 Sodium 135 Potassium 4.2 Chloride 99 Carbon Dioxide 30 H Anion Gap 10 L BUN 59 H Creatinine 1.27 Estim Creat Clear Calc 53.9 Estimated GFR 54 Random Glucose 127 H Calcium 8.5 Ammonia 79 H Discharge Plan Discharge Anticipated Discharge Date/Time: 11/13/24 07:10 Patient Disposition: Xfer Other Discharge Diagnosis: sepsis liver cirrhosis with ascites Referrals: Abhijit Oates MD [Primary Care Provider, Internal Medicine] - 1 Week Discharge Medications: Continued acetaminophen 500 mg Tablet 1,000 mg PO Q6H PRN (Reason: Pain/Fever) Discontinued carvedilol 6.25 mg tablet 6.25 mg PO BID torsemide 20 mg tablet 60 mg PO BID midodrine 5 mg tablet 5 mg PO TID levothyroxine 75 mcg tablet 75 mcg PO DAILY@0600 tamsulosin 0.4 mg capsule 0.8 mg PO DAILY spironolactone 50 mg tablet 50 mg PO DAILY Eliquis 2.5 mg tablet 2.5 mg PO BID Jardiance 10 mg tablet 10 mg PO DAILY polyethylene glycol 3350 [Miralax] 17 gram Powder In Packet 17 g PO DAILY PRN (Reason: Constipation) calcium carbonate 600 mg calcium (1,500 mg) Tablet 600 mg PO DAILY magnesium hydroxide [Milk of Magnesia] 400 mg/5 mL Suspension 30 ml PO DAILY PRN (Reason: Constipation) bisacodyl 10 mg Suppository 10 mg NE DAILY PRN (Reason: Constipation) lactulose 10 gram/15 mL Solution 30 ml PO DAILY PRN (Reason: Constipation) cholecalciferol (vitamin D3) [Vitamin D3] 25 mcg (1,000 unit) Tablet 50 mcg PO DAILY allopurinol 300 mg tablet 300 mg PO BEDTIME Discharge Orders: Discharge Order (Routine); Ordered 11/13/24 Ordered By: Debby Senior Activity on Discharge: As tolerated Stand Alone Forms: Patient Portal Discharge page Print Language: Bermudian Care Plan Goals: [facility] hospice Health Concerns: [facility] hospice Plan of Treatment: [facility] hospice Assessment: [facility] hospice Discharge Date/Time: 11/13/24 17:20
== END 2024-11-13 17:20 | disposition other institution (70) | DRG 871 ==
LOC: HO.ED 08:41 → HO.EDOVER 09:23 → HO.ICU 09:59 → HO.IMC 11-11 11:43
PROVIDERS: Admitting Provider Internal Medicine Pulmonary Disease; Emergency Provider Emergency Medicine; PCP Internal Medicine; Visit Provider Physician Assistant Medical
DX: A41.59 Other Gram-negative sepsis (principal); J69.0 Pneumonitis due to inhalation of food and vomit; R65.21 Severe sepsis with septic shock; J96.01 Acute respiratory failure with hypoxia; C91.90 Lymphoid leukemia, unspecified not having achieved remission; I50.32 Chronic diastolic (congestive) heart failure; K70.31 Alcoholic cirrhosis of liver with ascites; E03.9 Hypothyroidism, unspecified; B96.3 Hemophilus influenzae [H. influenzae] as the cause of diseases classified elsewhere; I48.91 Unspecified atrial fibrillation; Z51.5 Encounter for palliative care; D69.6 Thrombocytopenia, unspecified; N40.0 Benign prostatic hyperplasia without lower urinary tract symptoms; E66.01 Morbid (severe) obesity due to excess calories; Z68.34 Body mass index [BMI] 34.0-34.9, adult; Z66 Do not resuscitate; Z20.822 Contact with and (suspected) exposure to COVID-19; Z79.01 Long term (current) use of anticoagulants; Z79.899 Other long term (current) drug therapy
CPT/HCPCS: 0241U; 36415; 71045; 71250; 74176; 76705; 80048; 80053; 80076; 80307; 82040; 82140; 82803; 83605; 83735; 83880; 84100; 84484; 85007; 85025; 85027; 85610; 87040; 87077; 87185; 87205; 93005; 93306; 94640; 94660; 94799; 99285; J0131; J0456; J0696; J1171; J2270; P9047

== ENCOUNTER → 2024-11-09 06:19 | Outpatient (BNV) | payer MEDICARE, SELFPAY | PROVIDERS: Emergency Provider Emergency Medicine; PCP Internal Medicine; Visit Provider Radiology Diagnostic Radiology | DX: K76.89 Other specified diseases of liver (principal); J18.0 Bronchopneumonia, unspecified organism; R06.02 Shortness of breath | CPT/HCPCS: 71250 ==

== ENCOUNTER 2024-11-09 08:51 | Outpatient (BNV) | payer MEDICARE, SELFPAY | END 2024-11-13 07:07 | PROVIDERS: Admitting Provider Internal Medicine Pulmonary Disease; Emergency Provider Emergency Medicine; PCP Internal Medicine; Visit Provider Radiology Diagnostic Radiology | DX: R18.8 Other ascites (principal) | CPT/HCPCS: 76705 ==

== ENCOUNTER 2024-11-09 08:51 | Outpatient (BNV) | payer MEDICARE, SELFPAY | END 2024-11-11 23:37 | PROVIDERS: Admitting Provider Internal Medicine Pulmonary Disease; Emergency Provider Emergency Medicine; PCP Internal Medicine; Visit Provider Radiology Diagnostic Radiology | DX: I51.7 Cardiomegaly (principal); R91.8 Other nonspecific abnormal finding of lung field | CPT/HCPCS: 71045 ==

== ENCOUNTER 2024-11-09 08:51 | Outpatient (BNV) | payer MEDICARE, SELFPAY | END 2024-11-09 15:00 | PROVIDERS: Admitting Provider Internal Medicine Pulmonary Disease; Emergency Provider Emergency Medicine; PCP Internal Medicine; Visit Provider Internal Medicine | DX: I48.91 Unspecified atrial fibrillation (principal); I35.2 Nonrheumatic aortic (valve) stenosis with insufficiency; I34.0 Nonrheumatic mitral (valve) insufficiency; Q21.12 Patent foramen ovale; I51.7 Cardiomegaly | CPT/HCPCS: 93010; 93306 ==

== ENCOUNTER → 2024-11-09 08:51 | Outpatient (BNV) | payer MEDICARE, SELFPAY | PROVIDERS: Admitting Provider Internal Medicine Pulmonary Disease; Emergency Provider Emergency Medicine; PCP Internal Medicine; Visit Provider Internal Medicine | DX: R53.1 Weakness (principal); B96.3 Hemophilus influenzae [H. influenzae] as the cause of diseases classified elsewhere; R05.9 Cough, unspecified | CPT/HCPCS: 99222 ==

== ENCOUNTER → 2024-11-09 08:51 | Outpatient (BNV) | payer MEDICARE, SELFPAY | PROVIDERS: Admitting Provider Internal Medicine Pulmonary Disease; Emergency Provider Emergency Medicine; PCP Internal Medicine; Visit Provider Physician Assistant Medical | DX: K70.30 Alcoholic cirrhosis of liver without ascites (principal); J18.9 Pneumonia, unspecified organism; J96.01 Acute respiratory failure with hypoxia | CPT/HCPCS: 99233; 99499 ==

== ENCOUNTER → 2024-11-09 08:51 | Outpatient (BNV) | payer MEDICARE, SELFPAY | PROVIDERS: Admitting Provider Internal Medicine Pulmonary Disease; Emergency Provider Emergency Medicine; PCP Internal Medicine; Visit Provider Internal Medicine Pulmonary Disease | DX: I48.91 Unspecified atrial fibrillation (principal); I50.9 Heart failure, unspecified; K70.31 Alcoholic cirrhosis of liver with ascites; R78.81 Bacteremia | CPT/HCPCS: 99291 ==

== ENCOUNTER 2024-11-13 17:07 | Inpatient (IN) | payer OTHER, SELFPAY ==
--- NOTE | 2024-11-13 17:15 | PM.IMHP ---
History of Present Illness Date of Service: 11/13/24 Attending physician on admission: Tomás Luna Chief Complaint: respiratory failure This is an 84 year old male with a history of liver cirhosis who presnted at the emergency dept with hypotension poorly responsive to fluid and was admitted to the ICU for vasopressive support found to have pnemonia and h. flu bacteremia. He was treated with antibiotics and blood pressure improved and he was downgraded to the medical floor. However he had increasing oxygen requirements and respiratory status continued to worsen and his mental status deteriorated. patient did not want invasive intervention including returned to the ICU for vasopressor support or paracentesis to assist with respiratory status. he and family have elected for comfort measures/ hospice care. He will readmitted under [facility] hospice. Review of Systems Review of Systems: Yes all other systems are reviewed and are negative Cardiovascular: Cardiovascular: Denies chest pain [facility] Medical History Adequate anticoagulation on anticoagulant therapy Gout Rosacea Hypertension Hypothyroidism Atrial fibrillation Alcoholic cirrhosis Lymphoid leukemia CHF (congestive heart failure) Social History Household Members: Spouse Housing: Snf Do you presently have visiting nurse or other home services: No Unable to assess alcohol history related to: Unable to respond Patient Tobacco Use Status: Never used Tobacco Advance Directives Date on File: 11/09/24 Meds Allergies Allergy/AdvReac Type Severity Reaction Status Date / Time No Known Allergies Allergy Verified 11/09/24 06:33 Active Medications: Current Medications Acetaminophen (Acetaminophen 325 Mg Tablet) 650 mg PO Q4H PRN PRN Reason: Fever >/= 100, Pain, mild 1-3 Bisacodyl (Bisacodyl 10 Mg Supp.Rect) 10 mg MD DAILY PRN PRN Reason: Constipation Diazepam (Diazepam 10 Mg/2 Ml Cartridge) 2.5 mg IVPUSH Q4H PRN PRN Reason: anxiety/agitation/restlessness Morphine Sulfate (Morphine Sulfate 2 Mg/Ml Cartridge) 2 mg IVPUSH Q1H PRN PRN Reason: Pain, Severe (7-10)/ RR>/=24 Ondansetron HCl (Ondansetron Odt 4 Mg Tab.Rapdis) 4 mg TRANSLINGU Q8H PRN PRN Reason: Nausea and Vomiting Scopolamine (Scopolamine 1.5 Mg Patch.Td.3) 1.5 mg TRANSDERMA Q72H [facility] Home Medications ?Medication ?Instructions ?Recorded ?Confirmed ?Last Taken ?Type acetaminophen 500 mg tablet 1,000 mg PO Q6H PRN Pain/Fever 11/09/24 11/09/24 Unknown History Physical Exam Const: Other: sleepy, intermittently conversive; increased wob; wheeze; abdomen distended no leg edema Assessment and Plan (1) Acute respiratory failure with hypoxia: Status: Acute (2) Pneumonia: Status: Acute (3) Gram-negative bacteremia: Status: Acute (4) CHF (congestive heart failure): Status: Acute (5) Alcoholic cirrhosis: Status: Acute Plan 84-year-old gentleman with underlying alcoholic cirrhosis with ascites and intermittent requirements for paracentesis, AFib on anticoagulation, hypothyroidism, congestive heart failure, lymphoid leukemia presented 11/09/2024 from [facility] with hypoxia and hypotension with poor response to initial IV fluid resuscitation requiring pressor and BiPAP support. Patient started on empiric antibiotics and admitted to intensive care unit. downgraded to the medical floor but continued to decline. patient did not want invasive intervention and elected to transition to comfort measures/comfort care. He is being re-admitted under [facility] hospice. acute respiratory failure with hypoxia due to h flu pneumonia hflu bacteremia underlying etoh liver cirrhosis with ascites and HFpEF plan for GI hospice - pain control Quality Stroke Does the patient have a stroke diagnosis?: No VTE Prior VTE?: No VTE Risk Level:: Medical - moderate - high VTE Device Contraindication: Treatment Not Tolerated VTE Drug Contraindication: Treatment Not Tolerated
[2024-11-13] MEDS: diazePAM 10 MG/2 ML CARTRIDGE 2.5 MG IVPUSH (18:26)
[2024-11-13 23:17] VITALS: RESP 24
[2024-11-13 23:47] VITALS: RESP 18
--- NOTE | 2024-11-14 01:48 | PM.DDS ---
Discharge Sum: Prov Provider Primary care physician: Unknown Physician Pronouncing clinician: Momo Levin Discharge Sum: Diag PCOD Cause of : Pneumonia Discharge Sum: Summary Date and Time Date of admission: 11/13/24 17:07 Date of : 11/14/24 Time of : 01:45 Summary Details: 84 year old male with a history of liver cirhosis who represnted at the emergency dept with hypotension poorly responsive to fluid and was admitted to the ICU for vasopressive support found to have pnemonia and h. flu bacteremia. He was treated with antibiotics but oxygen requirements and respiratory status continued to worsen and his mental status deteriorated. patient did not want invasive intervention and he and family have elected to comfort measures/ hospice care. At 01:40 RN mentioned that patient appeared to have passed. On examination patient was not responding, no respirations, no corneal reflex, pupils are fixed and dilated. Patient pronounced at 01:45am on 11/14/2024. Patient's family notified. Additional Data Confirmation of as documented by pronouncing clinician: no pulse, no respirations and pupils fixed and dilated Attending physician: SCOTTY Diaz
== END 2024-11-14 04:30 | disposition expired | DRG 951 ==
LOC: HO.IMC 18:22 → HO.S3 19:09
PROVIDERS: Admitting Provider Physician Assistant Medical; Visit Provider Physician Assistant Medical
DX: Z51.5 Encounter for palliative care (principal); J96.01 Acute respiratory failure with hypoxia; J14 Pneumonia due to Hemophilus influenzae; I50.30 Unspecified diastolic (congestive) heart failure; C91.90 Lymphoid leukemia, unspecified not having achieved remission; R78.81 Bacteremia; K70.31 Alcoholic cirrhosis of liver with ascites; I48.91 Unspecified atrial fibrillation; E03.9 Hypothyroidism, unspecified; B96.3 Hemophilus influenzae [H. influenzae] as the cause of diseases classified elsewhere
CPT/HCPCS: J2270; J3360

== ENCOUNTER → 2024-11-13 17:07 | Outpatient (BNV) | payer OTHER, SELFPAY | PROVIDERS: Admitting Provider Physician Assistant Medical; Visit Provider Hospitalist | DX: J96.01 Acute respiratory failure with hypoxia (principal); J18.9 Pneumonia, unspecified organism; R78.81 Bacteremia; I50.9 Heart failure, unspecified; K70.30 Alcoholic cirrhosis of liver without ascites | CPT/HCPCS: 99499 ==